=== PATIENT | female | born 1975 | race Two or more races ===

== ENCOUNTER 2017-09-07 21:51 | Emergency (ER) | payer BC ==
[2017-09-07] MEDS ORDERED: Morphine 2 MG/ML Syringe IM ONE (22:12)
--- NOTE | 2017-09-07 22:12 | EDM.PDOC ---
ED HPI GENERAL MEDICAL PROBLEM - General Chief Complaint: Lower Extremity Injury/Pain Stated Complaint: FRACTURED TOE Time Seen by Provider: 09/07/17 22:12 Source of Information: Reports: Patient - History of Present Illness INITIAL COMMENTS - FREE TEXT/NARRATIVE: HISTORY AND PHYSICAL: History of present illness: [Patient presents with history of total fracture on the left foot she is under the care of our smash piecer [place] She is receiving multiple steroid injections and she has a walking shoe, she has been doing well as of late although today she went shopping with her in order on her feet for a couple of hours she presents with 8 out of 10 pain is tearful did provide morphine on arrival she has recent MRI however does not been red and was unable to open it No fever nausea vomiting chills sweats] Review of systems: As per history of present illness and below otherwise all systems reviewed and negative. Past medical history: As per history of present illness and as reviewed below otherwise noncontributory. Surgical history: As per history of present illness and as reviewed below otherwise noncontributory. Social history: No reported history of drug or alcohol abuse. Family history: As per history of present illness and as reviewed below otherwise noncontributory. Physical exam: HEENT: Atraumatic, normocephalic, pupils reactive, negative for conjunctival pallor or scleral icterus, mucous membranes moist, throat clear, neck supple, nontender, trachea midline. Lungs: Clear to auscultation, breath sounds equal bilaterally, chest nontender. Heart: S1S2, regular, negative for clicks, rubs, or JVD. Abdomen: Soft, nondistended, nontender. Negative for masses or hepatosplenomegaly. Negative for costovertebral tenderness. Pelvis: Stable nontender. Genitourinary: Deferred. Rectal: Deferred. Extremities: Atraumatic, negative for cords or calf pain. Neurovascular unremarkable. Left foot grossly unremarkable neurovascularly intact no redness warmth or bruising no swelling Neuro: Awake, alert, oriented. Cranial nerves II through XII unremarkable. Cerebellum unremarkable. Motor and sensory unremarkable throughout. Exam nonfocal. Diagnostics: [MRI on file not read by radiology Multiple previous x-rays] Therapeutics: [[place] 5 per 325 ] Impression: [Left foot pain] Definitive disposition and diagnosis as appropriate pending reevaluation and review of above. Left Feet Pain Score (Numeric/FACES): 10 - Related Data Allergies Allergy/AdvReac Type Severity Reaction Status Date / Time No Known Allergies Allergy Verified 09/07/17 22:02 Home Meds: Home Meds . [No Known Home Meds] 03/01/16 [History] Past Medical History - Past Health History Medical/Surgical History: Denies Medical/Surgical History - Infectious Disease History Infectious Disease History: Reports: Chicken Pox Social & Family History - Family History Family Medical History: Noncontributory - Tobacco Use Smoking Status *Q: Never Smoker - Caffeine Use Caffeine Use: Reports: None - Recreational Drug Use Recreational Drug Use: No Review of Systems - Review of Systems Review Of Systems: See Below ED EXAM, GENERAL - Physical Exam Exam: See Below Course - Vital Signs Last Recorded V/S: Last Vital Signs Temp 97.7 F 09/07/17 22:03 Pulse 128 H 09/07/17 22:03 Resp 24 H 09/07/17 22:03 BP 152/102 H 09/07/17 22:03 Pulse Ox 98 09/07/17 22:03 - Orders/Labs/Meds Meds: Medications Discontinued Medications Generic Name Dose Route Start Last Admin Trade Name Freq PRN Reason Stop Dose Admin Morphine Sulfate 2 mg 09/07/17 22:12 09/07/17 22:20 Morphine IM 09/07/17 22:13 2 mg ONETIME ONE Administration Departure - Departure Time of Disposition: 22:34 Disposition: Home, Self-Care 01 Condition: Good Clinical Impression: Foot pain, left - Discharge Information Referrals: PCP,None [Primary Care Provider] - Forms: ED Department Discharge Additional Instructions: Medication as prescribed Return if symptoms persist or worsen Follow-up with smash piecer [place] providedIn the interim Rest ice ibuprofen may also be used The following information is given to patients seen in the emergency department who are being discharged to home. This information is to outline your options for follow-up care. We provide all patients seen in our emergency department with a follow-up referral. The need for follow-up, as well as the timing and circumstances, are variable depending upon the specifics of your emergency department visit. If you don't have a primary care physician on staff, we will provide you with a referral. We always advise you to contact your personal physician following an emergency department visit to inform them of the circumstance of the visit and for follow-up with them and/or the need for any referrals to a consulting specialist. The emergency department will also refer you to a specialist when appropriate. This referral assures that you have the opportunity for follow-up care with a specialist. All of these measure are taken in an effort to provide you with optimal care, which includes your follow-up. Under all circumstances we always encourage you to contact your private physician who remains a resource for coordinating your care. When calling for follow-up care, please make the office aware that this follow-up is from your recent emergency room visit. If for any reason you are refused follow-up, please contact the [facility] emergency department at and asked to speak to the emergency department charge nurse.
[2017-09-07 23:08] VITALS: BP 129/78
== END 2017-09-07 22:45 | disposition home or self-care (01) ==
LOC: MW.ED 21:51
DX: M25.572 Pain in left ankle and joints of left foot (principal)
CPT/HCPCS: 96372; 99283; J2270; 99282

== ENCOUNTER 2018-09-10 10:09 | Emergency (ER) | payer BC ==
[2018-09-10] MEDS ORDERED: Ondansetron 4 MG/2 ML SDV IVPUSH ONE (10:13)
[2018-09-10] MEDS ORDERED: Ketorolac 30 MG/ML SDV IVPUSH ONE (10:13)
[2018-09-10] MEDS ORDERED: Sodium Chloride 0.9% 1,000 ML IV ONE (10:13)
[2018-09-10] MEDS ORDERED: Morphine 2 MG/ML Syringe IVPUSH ONE (10:14)
--- NOTE | 2018-09-10 10:18 | EDM.PDOC ---
ED HPI GENERAL MEDICAL PROBLEM - General Chief Complaint: Genitourinary Problem Stated Complaint: KIDNEY STONES Time Seen by Provider: 09/10/18 10:13 Source of Information: Reports: Patient History Limitations: Reports: No Limitations - History of Present Illness INITIAL COMMENTS - FREE TEXT/NARRATIVE: HISTORY AND PHYSICAL: History of present illness: Patient is a 43-year-old female presents to the ED today with concern of left flank pain since this morning. Patient states she has a history of kidney stones in the past and her pain today feels similar to her past kidney stones. Patient rates her pain a 10 out of 10. Patient states she also feels nauseous so she has not been able to take anything for her symptoms. Patient denies a history of anxiety and depression but denies any other health history. Patient denies any other symptoms at this time. Patient denies any injury or trauma to the area. Patient denies fever, chills, chest pain, shortness of breath, or cough. Denies headache, neck stiff ness, change in vision, syncope, or near syncope. Denies vomiting, diarrhea, constipation, or dysuria. Has not noted any blood in urine or stool. Patient has been eating and drinking appropriately. Review of systems: As per history of present illness and below otherwise all systems reviewed and negative. Past medical history: As per history of present illness and as reviewed below otherwise noncontributory. Surgical history: As per history of present illness and as reviewed below otherwise noncontributory. Social history: See social history for further information Family history: As per history of present illness and as reviewed below otherwise noncontributory. Physical exam: General: Patient is alert, oriented, and in no acute distress. Patient sitting on exam table tearful and holding left flank area. HEENT: Atraumatic, normocephalic, pupils equal and reactive bilaterally, negative for conjunctival pallor or scleral icterus, mucous membranes moist, TMs normal bilaterally, throat clear, neck supple, nontender, trachea midline. No drooling or trismus noted. No meningeal signs. No hot potato voice noted. Lungs: Clear to auscultation, breath sounds equal bilaterally, chest nontender. Heart: S1S2, regular rate and rhythm without overt murmur Abdomen: Soft, nondistended, nontender. Negative for masses or hepatosplenomegaly. Positive for costovertebral tenderness of the left. Pelvis: Stable nontender. Genitourinary: Deferred. Rectal: Deferred. Skin: Intact, warm, dry. No lesions or rashes noted. Extremities: Atraumatic, negative for cords or calf pain. Neurovascular unremarkable. Neuro: Awake, alert, oriented. Cranial nerves II through XII unremarkable. Cerebellum unremarkable. Motor and sensory unremarkable throughout. Exam nonfocal. Notes: Patient's pain controlled after therapeutics in ED. Patient able to tolerate PO intake. Did offer admission for observation but patient declines and expresses comfort with outpatient treatment. Discussed the importance for follow-up with the primary care provider. Also discussed the findings of small nodules in her lung bases and need for follow up of these with PCP. Voices understanding and is agreeable to plan of care. Denies any further questions or concerns at this time. Diagnostics: CBC, CMP, UA, urine hCG, lipase, EKG, troponin, abdominal pelvic CT Therapeutics: Toradol, morphine, Zofran, Saline, Rocephin Prescription: Bactrim DS, Pyridium, Hope #[id number], Zofran Impression: Acute pyelonephritis / cystitis Plan: 1. Alternate ibuprofen and Tylenol as directed for pain and discomfort. 2. Follow-up with her primary care provider as discussed. Return to the ED as needed and as discussed. Definitive disposition and diagnosis as appropriate pending reevaluation and review of above. left flank Pain Score (Numeric/FACES): 10 - Related Data Allergies Allergy/AdvReac Type Severity Reaction Status Date / Time No Known Allergies Allergy Verified 09/10/18 10:21 Home Meds: Home Meds . [No Known Home Meds] 03/01/16 [History] Past Medical History - Past Health History Medical/Surgical History: Denies Medical/Surgical History - Infectious Disease History Infectious Disease History: Reports: Chicken Pox Social & Family History - Family History Family Medical History: Noncontributory - Caffeine Use Caffeine Use: Reports: None ED ROS GENERAL - Review of Systems Review Of Systems: ROS reveals no pertinent complaints other than HPI. ED EXAM, RENAL/ - Physical Exam Exam: See Below (See dictation) Course - Vital Signs Last Recorded V/S: Last Vital Signs Temp 36.4 C 09/10/18 10:22 Pulse 74 09/10/18 11:15 Resp 16 09/10/18 11:15 BP 121/70 09/10/18 11:15 Pulse Ox 97 09/10/18 11:15 - Orders/Labs/Meds Orders: Active Orders 24 hr Category Date Time Status EKG Documentation Completion [RC] STAT Care 09/10/18 10:15 Active CULTURE URINE [RM] Stat Lab 09/10/18 10:27 Received cefTRIAXone [Rocephin in Dextrose,Iso-Osm 1 GM/50 ML] 1 Med 09/10/18 11:30 Ordered gm Premix Bag 1 bag IV ONETIME Medication Orders Ceftriaxone Sodium/Dextrose 1 (gm/ Premix) 50 mls @ 100 mls/hr IV ONETIME ONE Stop: 09/10/18 11:59 Labs: Laboratory Tests 09/10/18 09/10/18 09/10/18 Range/Units 10:26 10:26 10:26 WBC 8.96 (4.0-11.0) K/uL RBC 5.05 (4.30-5.90) M/uL Hgb 14.6 (12.0-16.0) g/dL Hct 44.3 (36.0-46.0) % MCV 87.7 (80.0-98.0) fL MCH 28.9 (27.0-32.0) pg MCHC 33.0 (31.0-37.0) g/dL RDW Std Deviation 44.9 (28.0-62.0) fl RDW Coeff of [place] 14 (11.0-15.0) % Plt Count 283 (150-400) K/uL MPV 11.90 (7.40-12.00) fL Neut % (Auto) 64.1 (48.0-80.0) % Lymph % (Auto) 28.0 (16.0-40.0) % [place] % (Auto) 6.0 (0.0-15.0) % Eos % (Auto) 1.8 (0.0-7.0) % Baso % (Auto) 0.1 (0.0-1.5) % Neut # (Auto) 5.7 (1.4-5.7) K/uL Lymph # (Auto) 2.5 H (0.6-2.4) K/uL [place] # (Auto) 0.5 (0.0-0.8) K/uL Eos # (Auto) 0.2 (0.0-0.7) K/uL Baso # (Auto) 0.0 (0.0-0.1) K/uL Nucleated RBC % 0.0 /100WBC Nucleated RBCs # 0 K/uL Sodium 139 (136-145) mmol/L Potassium 3.5 (3.5-5.1) mmol/L Chloride 105 (98-107) mmol/L Carbon Dioxide 20.7 L (21.0-32.0) mmol/L BUN 11 (7.0-18.0) mg/dL Creatinine 0.9 (0.6-1.0) mg/dL Est Cr Clr Drug Dosing 68.88 mL/min Estimated GFR (MDRD) > 60.0 ml/min Glucose 104 (74-106) mg/dL Calcium 8.7 (8.5-10.1) mg/dL Total Bilirubin 1.1 H (0.2-1.0) mg/dL AST 19 (15-37) IU/L ALT 25 (14-63) IU/L Alkaline Phosphatase 170 H (46-116) U/L Troponin I < 0.050 (0.000-0.056) ng/mL Total Protein 8.0 (6.4-8.2) g/dL Albumin 3.7 (3.4-5.0) g/dL Globulin 4.3 H (2.6-4.0) g/dL Albumin/Globulin Ratio 0.9 (0.9-1.6) Lipase 128 (73-393) U/L Urine Color Urine Appearance Urine pH (5.0-8.0) Ur Specific [place] (1.001-1.035) Urine Protein (NEGATIVE) mg/dL Urine Glucose (UA) (NEGATIVE) mg/dL Urine Ketones (NEGATIVE) mg/dL Urine Occult Blood (NEGATIVE) Urine Nitrite (NEGATIVE) Urine Bilirubin (NEGATIVE) Urine Urobilinogen (<2.0) EU/dL Ur Leukocyte Esterase (NEGATIVE) Urine RBC (0-2/HPF) Urine WBC (0-5/HPF) Ur Epithelial Cells (NONE-FEW) Amorphous Sediment (NEGATIVE) Urine Bacteria (NEGATIVE) Urine Mucus (NONE-MOD) Urine HCG, Qual (NEGATIVE) 09/10/18 09/10/18 Range/Units 10:27 10:27 WBC (4.0-11.0) K/uL RBC (4.30-5.90) M/uL Hgb (12.0-16.0) g/dL Hct (36.0-46.0) % MCV (80.0-98.0) fL MCH (27.0-32.0) pg MCHC (31.0-37.0) g/dL RDW Std Deviation (28.0-62.0) fl RDW Coeff of [place] (11.0-15.0) % Plt Count (150-400) K/uL MPV (7.40-12.00) fL Neut % (Auto) (48.0-80.0) % Lymph % (Auto) (16.0-40.0) % [place] % (Auto) (0.0-15.0) % Eos % (Auto) (0.0-7.0) % Baso % (Auto) (0.0-1.5) % Neut # (Auto) (1.4-5.7) K/uL Lymph # (Auto) (0.6-2.4) K/uL [place] # (Auto) (0.0-0.8) K/uL Eos # (Auto) (0.0-0.7) K/uL Baso # (Auto) (0.0-0.1) K/uL Nucleated RBC % /100WBC Nucleated RBCs # K/uL Sodium (136-145) mmol/L Potassium (3.5-5.1) mmol/L Chloride (98-107) mmol/L Carbon Dioxide (21.0-32.0) mmol/L BUN (7.0-18.0) mg/dL Creatinine (0.6-1.0) mg/dL Est Cr Clr Drug Dosing mL/min Estimated GFR (MDRD) ml/min Glucose (74-106) mg/dL Calcium (8.5-10.1) mg/dL Total Bilirubin (0.2-1.0) mg/dL AST (15-37) IU/L ALT (14-63) IU/L Alkaline Phosphatase (46-116) U/L Troponin I (0.000-0.056) ng/mL Total Protein (6.4-8.2) g/dL Albumin (3.4-5.0) g/dL Globulin (2.6-4.0) g/dL Albumin/Globulin Ratio (0.9-1.6) Lipase (73-393) U/L Urine Color YELLOW Urine Appearance SLT CLOUDY Urine pH 8.0 (5.0-8.0) Ur Specific [place] 1.015 (1.001-1.035) Urine Protein NEGATIVE (NEGATIVE) mg/dL Urine Glucose (UA) NEGATIVE (NEGATIVE) mg/dL Urine Ketones NEGATIVE (NEGATIVE) mg/dL Urine Occult Blood NEGATIVE (NEGATIVE) Urine Nitrite NEGATIVE (NEGATIVE) Urine Bilirubin NEGATIVE (NEGATIVE) Urine Urobilinogen 0.2 (<2.0) EU/dL Ur Leukocyte Esterase SMALL H (NEGATIVE) Urine RBC 1-2 (0-2/HPF) Urine WBC 8-12 (0-5/HPF) Ur Epithelial Cells FEW (NONE-FEW) Amorphous Sediment FEW (NEGATIVE) Urine Bacteria 1+ H (NEGATIVE) Urine Mucus FEW (NONE-MOD) Urine HCG, Qual NEGATIVE (NEGATIVE) Meds: Medications Generic Name Dose Route Start Last Admin Trade Name April PRN Reason Stop Dose Admin Ceftriaxone Sodium/Dextrose 1 50 mls @ 100 mls/hr 09/10/18 11:30 gm/ Premix IV 09/10/18 11:59 ONETIME ONE Discontinued Medications Generic Name Dose Route Start Last Admin Trade Name April PRN Reason Stop Dose Admin Sodium Chloride 1,000 mls @ 999 mls/hr 09/10/18 10:13 09/10/18 10:21 Normal Saline IV 09/10/18 11:13 999 mls/hr BOLUS ONE Administration Ketorolac Tromethamine 30 mg 09/10/18 10:13 09/10/18 10:22 Toradol IVPUSH 09/10/18 10:14 30 mg ONETIME ONE Administration Morphine Sulfate 2 mg 09/10/18 10:14 09/10/18 10:21 Morphine IVPUSH 09/10/18 10:15 2 mg ONETIME ONE Administration Ondansetron HCl 4 mg 09/10/18 10:13 09/10/18 10:22 Zofran IVPUSH 09/10/18 10:14 4 mg ONETIME ONE Administration Departure - Departure Time of Disposition: 11:36 Disposition: Home, Self-Care 01 Clinical Impression: Acute pyelonephritis - Discharge Information Instructions: Pyelonephritis, Adult Referrals: Carolina Talamantes NP [Primary Care Provider] - Forms: ED Department Discharge Additional Instructions: The following information is given to patients seen in the emergency department who are being discharged to home. This information is to outline your options for follow-up care. We provide all patients seen in our emergency department with a follow-up referral. The need for follow-up, as well as the timing and circumstances, are variable depending upon the specifics of your emergency department visit. If you don't have a primary care physician on staff, we will provide you with a referral. We always advise you to contact your personal physician following an emergency department visit to inform them of the circumstance of the visit and for follow-up with them and/or the need for any referrals to a consulting specialist. The emergency department will also refer you to a specialist when appropriate. This referral assures that you have the opportunity for follow-up care with a specialist. All of these measure are taken in an effort to provide you with optimal care, which includes your follow-up. Under all circumstances we always encourage you to contact your private physician who remains a resource for coordinating your care. When calling for follow-up care, please make the office aware that this follow-up is from your recent emergency room visit. If for any reason you are refused follow-up, please contact the [facility] Emergency Department at and asked to speak to the emergency department charge nurse. [facility] [address] [place], [place] [id number] [place] [address] 1. Alternate ibuprofen and Tylenol as directed for pain and discomfort. Take medication as prescribed. 2. Follow-up with her primary care provider as discussed. Return to the ED as needed and as discussed. - My Orders Last 24 Hours: My Active Orders 09/10/18 10:15 EKG Documentation Completion [RC] STAT 09/10/18 10:27 CULTURE URINE [RM] Stat 09/10/18 11:30 cefTRIAXone [Rocephin in Dextrose,Iso-Osm 1 GM/50 ML] 1 gm Premix Bag 1 bag IV ONETIME - Assessment/Plan Last 24 Hours: My Active Orders 09/10/18 10:15 EKG Documentation Completion [RC] STAT 09/10/18 10:27 CULTURE URINE [RM] Stat 09/10/18 11:30 cefTRIAXone [Rocephin in Dextrose,Iso-Osm 1 GM/50 ML] 1 gm Premix Bag 1 bag IV ONETIME
[2018-09-10 10:56] LABS: CHLORIDE,CL 105 mmol/L (98-107); SODIUM,NA 139 mmol/L (136-145)
--- NOTE | 2018-09-10 11:19 | CT ---
CT of the abdomen and pelvis without contrast. HISTORY: Flank pain TECHNIQUE: Axial CT images were obtained of the abdomen and pelvis without contrast. Coronal and sagittal reconstructions obtained. FINDINGS: The lung bases are clear, no pleural effusion. There are several tiny pleural and subpleural nodules within the lung bases bilaterally. Small hiatal hernia. The liver, spleen, adrenal glands, and pancreas appear unremarkable for noncontrast examination. The gallbladder appears normal. There is no bulky retroperitoneal lymphadenopathy. No abdominal ascites. Tiny fat-containing umbilical hernia. There are no calcifications noted within the kidneys or along the courses of the ureters bilaterally. The large and small bowel are normal in caliber without evidence of obstruction. The appendix appears normal. There is no bulky pelvic lymphadenopathy. No free fluid. No free air. The urinary bladder appears normal. The visualized osseous structures appear normal. IMPRESSION: 1. No acute findings within the abdomen or pelvis. 2. Several very tiny nodules within the lung bases, the patient has known risk factors consider follow-up imaging in 12 months.
[2018-09-10] MEDS ORDERED: cefTRIAXone 1 GM in Premix Bag 1 BAG IV ONE (11:30)
[2018-09-10 12:08] VITALS: BP 139/74
== END 2018-09-10 12:15 | disposition home or self-care (01) ==
LOC: MW.ED 10:09
DX: N10 Acute pyelonephritis (principal)
CPT/HCPCS: 36415; 74176; 80053; 81001; 81025; 83690; 84484; 85025; 87086; 93005; 96361; 96365; 96375; 99284; A4217; J0696; J1885; J2270; J2405; J7040

== ENCOUNTER 2018-11-07 11:14 | Emergency (ER) | payer BC ==
[2018-11-07] MEDS ORDERED: Ketorolac 60 MG/2 ML SDV IM ONE (11:50)
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
--- NOTE | 2018-11-07 12:22 | CR ---
Indication: Trauma Technique: Two views of the right shoulder Comparison: None available Findings: Bones: Alignment is normal. No fractures or bone lesions. Joint spaces: Unremarkable. Soft tissues: Unremarkable. Impression: Negative. Dictated by Matthias Riggs MD @ 11/07/2018 12:20:30 PM Dictated by: Matthias Riggs MD @ 11/07/2018 12:20:34 (Electronically Signed)
[2018-11-07] MEDS ORDERED: LORazepam 0.5 MG Tab PO ONE (12:24)
--- NOTE | 2018-11-07 12:26 | CR ---
INDICATION: Trauma TECHNIQUE: Chest and right ribs five views COMPARISON: None available FINDINGS: Cardiovascular and mediastinum: Heart size and vasculature are normal in caliber and appearance. Mediastinum is within normal limits. Lungs and pleural spaces: Lungs are clear. No sign of infiltrate or mass. No sign of pleural effusion. No pneumothorax. Bones and soft tissues: Detailed oblique images of the right ribs demonstrate no fractures or bone lesions. IMPRESSION: Unremarkable chest and right ribs. Dictated by Matthias Riggs MD @ 11/07/2018 12:24:27 PM Dictated by: Matthias Riggs MD @ 11/07/2018 12:24:48 (Electronically Signed)
--- NOTE | 2018-11-07 12:28 | CR ---
Indication: Trauma Technique: A single view of the pelvis Comparison: None available Findings: Bones: An apparent small curvilinear lucency in the mid sacrum which could be projectional. Otherwise, no acute displaced fracture or dislocation seen. Joint spaces: Unremarkable. Soft tissues: Unremarkable. Impression: An apparent small sacral lucency could be artifactual, however correlate clinically and if indicated, with additional views. Dictated by Matthias Riggs MD @ 11/07/2018 12:27:16 PM Dictated by: Matthias Riggs MD @ 11/07/2018 12:27:25 (Electronically Signed)
[2018-11-07 13:24] LABS: BLOOD UREA NITROGEN,BUN 10 mg/dL (7.0-18.0); CHLORIDE,CL 107 mmol/L (98-107); GLUCOSE RANDOM 96 mg/dL (74-106); POTASSIUM,K 3.9 mmol/L (3.5-5.1); SODIUM,NA 142 mmol/L (136-145)
[2018-11-07 16:51] VITALS: BP 122/66; PULSE 75
== END 2018-11-07 14:00 | disposition home or self-care (01) ==
LOC: MW.ED 11:14
DX: S20.211A Contusion of right front wall of thorax, initial encounter (principal); S40.011A Contusion of right shoulder, initial encounter; V86.55XA Driver of 3- or 4- wheeled all-terrain vehicle (ATV) injured in nontraffic accident, initial encounter
CPT/HCPCS: 36415; 71101; 72170; 73030; 80053; 81003; 81025; 85025; 96372; 99284; A9270; J1885

== ENCOUNTER 2020-07-30 21:10 | Emergency (ER) | payer BC ==
--- NOTE | 2020-07-30 22:25 | EDM.PDOC ---
<Eloy Obrien - Last Filed: 07/31/20 07:08> ED HPI GENERAL MEDICAL PROBLEM - General Chief Complaint: General Stated Complaint: MEDICAL CLEARANCE Time Seen by Provider: 07/30/20 21:40 - History of Present Illness INITIAL COMMENTS - FREE TEXT/NARRATIVE: HISTORY AND PHYSICAL: History of present illness: This is a 44-year-old female with history significant for PTSD, depression, anxiety, schizophrenia, prior episodes of suicide attempts with prior admission to a psychiatric facility (last admission approximately 1 month ago in [place]) who presents to the ER today by police secondary to being called initially for a domestic violence call. Please report when they arrived there were no issues with domestic violence that they could address however the patient verbalized to them that she was tired of living and that she want to go to her heavenly father and had intentions of killing her self with a knife. She was transferred to the ED for further psychiatric evaluation by police at that time. Upon my evaluation the patient, she reports that she recently came back from [place] and found out that her was cheating on her which caused an argument with her . She reports that she do not get assaulted. She denies any trauma from her . She reports that that was a trigger that caused her to become suicidal. Patient denies any recent fevers, shakes, chills, nausea, vomiting, diarrhea, dysuria, frequency, urgency, chest pain, shortness of breath. Patient reports that she has not taken any of her mental health medications for the last 2 days secondary to feeling depressed, worthless and just wanting everything to end. Patient does endorse auditory hallucinations with voices arguing whether or not she should kill herself. Patient denies any visual hallucinations. Patient denies any homicidal ideation. Patient does endorse suicidal ideation at this time. Patient denies any actual attempt as of yet to harm her self today. Review of systems: As per history of present illness and below otherwise all systems reviewed and negative. Past medical history: As per history of present illness and as reviewed below otherwise noncontributory. Surgical history: As per history of present illness and as reviewed below otherwise noncontributory. Social history: No reported history of drug or alcohol abuse. Family history: As per history of present illness and as reviewed below otherwise noncontributory. Physical exam: This patient was seen and evaluated during the 2019 SARS-CoV-2 novel coronavirus pandemic period. Community viral transmission is ongoing at time of this encounter and the emergency department is operating under pandemic response procedures. Constitutional: Patient is oriented to person, place, and time. Appears well-developed and well-nourished. No distress. HEENT: Moist mucous membranes Head: Normocephalic and atraumatic Eyes: Right eye exhibits no discharge. Left eye exhibits no discharge. No scleral icterus Neck: Normal range of motion. No tracheal deviation present. Cardiovascular: Normal rate and regular rhythm. Pulmonary: Effort normal, no respiratory distress. Abdominal: No distention Musculoskeletal: Normal range of motion Neurologic: Alert and oriented to person, place and time. Skin: Pender, warm and dry. Psychiatric: Normal mood and affect. Behavior is normal. Judgment and thought content normal. Nursing note and vital signs have been reviewed Upon my initial evaluation the patient reported that she was feeling much improved and that she was not suicidal at this time. However patient had 2 episodes where she was noted to be rolling up the sheets in order to hang in the ceiling of the room so that she can hang herself. Diagnostics: CBC, CMP, EKG, urine drug screen, alcohol level. EKG: As interpreted by ER physician: Micah: Nonspecific ST-T wave abnormalities Normal axis No evidence of ST elevation HI Normal sinus rhythm heart rate of 88. Therapeutics: [] Assessment and plan: This is a 44-year-old female who presents to the ER today by law enforcement for further evaluation of suicidal ideation. While in the ED the patient did have 2 episodes where she was rolling up sheets in order to hang herself. Although patient initially reported that she was feeling much better, at this time she reports that she is actively suicidal and wanting to end her life. Patient will have labs drawn in the ED to make sure she is medically stable that we can transfer her to an appropriate psychiatric facility for inpatient evaluation. 1 AM: Patient has been medically cleared for mental health evaluation. Patient's labs have all been within normal limits. Patient has been calm and cooperative throughout the remainder of her ER stay. 1:05 AM: [facility] hospital contacted: No mental health beds available at this time. 1:10 AM: [facility] contacted: No mental health beds available at this time. 1:15 AM: [facility] contacted: They do have availability for female mental health adult bed available. I have discussed the case with Dr. White. She has accepted patient for transfer but is only able to hold her bed for 6 hours. Bed will be released at 7:15 AM if patient is not there. 1:30 AM: A court hold has been initiated by me for the patient. All forms have been faxed to the appropriate numbers that were given. [phone]: Fax for the psychiatry floor for review of court hold papers. 2 AM: At this time, we have attempted to contact 11 different ambulance crews to assist us with transferring this patient in the designated timeframe. Unfortunately, we do not have an ambulance crew here [place] that would be available before 8 AM. Multiple other ambulance crews have been contacted and none of which are able to assist us with transferring the patient before 7 AM either. I have recontacted [facility] at 1:50 AM and I have informed them of the situation. At this time will release the bed to allow oth ers who might need the bed to utilize it for transfer. We will contact them back at 6:30 AM to see if they can still accept the patient for transfer when we have transfer capabilities available. 6:30am: contacted [facility] to inquire regarding bed availability for patient. Discussed with Dr. White there was agreed to accept patient once again but has asked that we maintain a 6-hour timeframe for bed placement. All forms have been sent and awaiting approval from the psychiatry charge nurse at this time. Definitive disposition and diagnosis as appropriate pending reevaluation and review of above. - Related Data Allergies Allergy/AdvReac Type Severity Reaction Status Date / Time No Known Allergies Allergy Verified 11/07/18 11:38 Home Meds: Home Meds Albuterol Sulfate [Proair Hfa] 8.5 gm IH PCBREAKFAST 07/30/20 [History] Docusate Sodium [Colace] 100 mg PO 07/30/20 [History] FLUoxetine HCl [Fluoxetine HCl] 20 mg PO 07/30/20 [History] Fluticasone Propionate [Flovent HFA] 44 mcg .XX 07/30/20 [History] Ondansetron [Zofran ODT] 4 mg PO Q6H PRN 07/30/20 [History] Prazosin HCl [Prazosin] 2 mg PO 07/30/20 [History] Prazosin [Minpress] 1 mg PO 07/30/20 [History] hydrOXYzine HCL [Hydroxyzine HCl] 25 mg PO 07/30/20 [History] risperiDONE [Risperidone] 2 mg PO 07/30/20 [History] Past Medical History - Past Health History Medical/Surgical History: Denies Medical/Surgical History HEENT History: Reports: None Cardiovascular History: Reports: None Respiratory History: Reports: Asthma Gastrointestinal History: Reports: None Genitourinary History: Reports: Renal Calculus CLIENT ACCOUNT MANAGER History: Reports: None Musculoskeletal History: Reports: None Neurological History: Reports: None Psychiatric History: Reports: None Endocrine/Metabolic History: Reports: None Hematologic History: Reports: None Immunologic History: Reports: None Oncologic (Cancer) History: Reports: None Dermatologic History: Reports: None - Infectious Disease History Infectious Disease History: Reports: Chicken Pox - Past Surgical History Head Surgeries/Procedures: Reports: None HEENT Surgical History: Reports: None Cardiovascular Surgical History: Reports: None Respiratory Surgical History: Reports: None GI Surgical History: Reports: None Female Surgical History: Reports: Ureteral Stent Endocrine Surgical History: Reports: None Neurological Surgical History: Reports: None Musculoskeletal Surgical History: Reports: Other (See Below) Other Musculoskeletal Surgeries/Procedures:: foot surgery Oncologic Surgical History: Reports: None Dermatological Surgical History: Reports: None Social & Family History - Family History Family Medical History: No Pertinent Family History - Caffeine Use Caffeine Use: Reports: None ED ROS GENERAL - Review of Systems Review Of Systems: See Below ED EXAM, GENERAL - Physical Exam Exam: See Below Departure - Departure Time of Disposition: 07:08 Disposition: DC/Tfer to Psych Hosp/Unit 65 Condition: Good Clinical Impression: Suicidal ideation - Discharge Information Referrals: Oscar Ferrara MD [Ordering Only Provider] - Forms: ED Department Discharge <Eddy Silva - Last Filed: 07/31/20 07:17> Course - Vital Signs Last Recorded V/S: Last Vital Signs Temp 97.8 F 07/31/20 05:07 Pulse 84 07/31/20 06:08 Resp 16 07/31/20 06:08 BP 100/48 L 07/31/20 06:08 Pulse Ox 95 07/31/20 06:08 - Orders/Labs/Meds Orders: Active Orders 24 hr Category Date Time Status EKG Documentation Completion [RC] STAT Care 04/30/21 21:46 Active Labs: Laboratory Tests 07/30/20 07/30/20 07/30/20 Range/Units 22:10 22:15 22:15 WBC (4.0-11.0) K/uL RBC (4.30-5.90) M/uL Hgb (12.0-16.0) g/dL Hct (36.0-46.0) % MCV (80.0-98.0) fL MCH (27.0-32.0) pg MCHC (31.0-37.0) g/dL RDW Std Deviation (28.0-62.0) fl RDW Coeff of Collins (11.0-15.0) % Plt Count (150-400) K/uL MPV (7.40-12.00) fL Neut % (Auto) (48.0-80.0) % Lymph % (Auto) (16.0-40.0) % [place] % (Auto) (0.0-15.0) % Eos % (Auto) (0.0-7.0) % Baso % (Auto) (0.0-1.5) % Neut # (Auto) (1.4-5.7) K/uL Lymph # (Auto) (0.6-2.4) K/uL [place] # (Auto) (0.0-0.8) K/uL Eos # (Auto) (0.0-0.7) K/uL Baso # (Auto) (0.0-0.1) K/uL Nucleated RBC % /100WBC Nucleated RBCs # K/uL Sodium (136-145) mmol/L Potassium (3.5-5.1) mmol/L Chloride (98-107) mmol/L Carbon Dioxide (21.0-32.0) mmol/L BUN (7.0-18.0) mg/dL Creatinine (0.6-1.0) mg/dL Est Cr Clr Drug Dosing mL/min Estimated GFR (MDRD) ml/min Glucose (74-106) mg/dL Calcium (8.5-10.1) mg/dL Magnesium (1.8-2.4) mg/dL Total Bilirubin (0.2-1.0) mg/dL AST (15-37) IU/L ALT (14-63) IU/L Alkaline Phosphatase (46-116) U/L Total Protein (6.4-8.2) g/dL Albumin (3.4-5.0) g/dL Globulin (2.6-4.0) g/dL Albumin/Globulin Ratio (0.9-1.6) TSH 3rd Generation (0.36-3.74) uIU/mL Urine Color YELLOW Urine Appearance CLEAR Urine pH 6.0 (5.0-8.0) Ur Specific Duff 1.015 (1.001-1.035) Urine Protein NEGATIVE (NEGATIVE) mg/dL Urine Glucose (UA) NEGATIVE (NEGATIVE) mg/dL Urine Ketones NEGATIVE (NEGATIVE) mg/dL Urine Occult Blood NEGATIVE (NEGATIVE) Urine Nitrite NEGATIVE (NEGATIVE) Urine Bilirubin NEGATIVE (NEGATIVE) Urine Urobilinogen 0.2 (<2.0) EU/dL Ur Leukocyte Esterase TRACE H (NEGATIVE) Urine RBC 0-1 (0-2/HPF) Urine WBC 1-4 (0-5/HPF) Ur Epithelial Cells MODERATE (NONE-FEW) Urine Bacteria RARE (NEGATIVE) Urine HCG, Qual NEGATIVE (NEGATIVE) Salicylates (0-20) mg/dL Urine Opiates Screen NEGATIVE (NEGATIVE) Ur Oxycodone Screen NEGATIVE (NEGATIVE) Urine Methadone Screen NEGATIVE (NEGATIVE) Acetaminophen ug/mL Ur Barbiturates Screen NEGATIVE (NEGATIVE) Ur Phencyclidine Scrn NEGATIVE (NEGATIVE) Ur Amphetamine Screen NEGATIVE (NEGATIVE) U Methamphetamines Scrn NEGATIVE (NEGATIVE) U Benzodiazepines Scrn NEGATIVE (NEGATIVE) U Cocaine Metab Screen NEGATIVE (NEGATIVE) U Marijuana (THC) Screen NEGATIVE (NEGATIVE) Ethyl Alcohol mg/dL SARS-CoV-2 RNA (GRACE) (NEGATIVE) 07/30/20 07/30/20 07/30/20 Range/Units 22:20 23:12 23:12 WBC 10.73 (4.0-11.0) K/uL RBC 5.06 (4.30-5.90) M/uL Hgb 14.7 (12.0-16.0) g/dL Hct 44.4 (36.0-46.0) % MCV 87.7 (80.0-98.0) fL MCH 29.1 (27.0-32.0) pg MCHC 33.1 (31.0-37.0) g/dL RDW Std Deviation 45.8 (28.0-62.0) fl RDW Coeff of Collins 14 (11.0-15.0) % Plt Count 269 (150-400) K/uL MPV 11.80 (7.40-12.00) fL Neut % (Auto) 71.3 (48.0-80.0) % Lymph % (Auto) 22.9 (16.0-40.0) % [place] % (Auto) 4.8 (0.0-15.0) % Eos % (Auto) 0.8 (0.0-7.0) % Baso % (Auto) 0.2 (0.0-1.5) % Neut # (Auto) 7.7 H (1.4-5.7) K/uL Lymph # (Auto) 2.5 H (0.6-2.4) K/uL [place] # (Auto) 0.5 (0.0-0.8) K/uL Eos # (Auto) 0.1 (0.0-0.7) K/uL Baso # (Auto) 0.0 (0.0-0.1) K/uL Nucleated RBC % 0.0 /100WBC Nucleated RBCs # 0 K/uL Sodium 142 (136-145) mmol/L Potassium 3.4 L (3.5-5.1) mmol/L Chloride 106 (98-107) mmol/L Carbon Dioxide 22.7 (21.0-32.0) mmol/L BUN 8 (7.0-18.0) mg/dL Creatinine 0.9 (0.6-1.0) mg/dL Est Cr Clr Drug Dosing 68.16 mL/min Estimated GFR (MDRD) > 60.0 ml/min Glucose 103 (74-106) mg/dL Calcium 8.9 (8.5-10.1) mg/dL Magnesium 2.1 (1.8-2.4) mg/dL Total Bilirubin 0.4 (0.2-1.0) mg/dL AST 22 (15-37) IU/L ALT 32 (14-63) IU/L Alkaline Phosphatase 215 H (46-116) U/L Total Protein 7.9 (6.4-8.2) g/dL Albumin 3.6 (3.4-5.0) g/dL Globulin 4.3 H (2.6-4.0) g/dL Albumin/Globulin Ratio 0.8 L (0.9-1.6) TSH 3rd Generation 2.57 (0.36-3.74) uIU/mL Urine Color Urine Appearance Urine pH (5.0-8.0) Ur Specific Duff (1.001-1.035) Urine Protein (NEGATIVE) mg/dL Urine Glucose (UA) (NEGATIVE) mg/dL Urine Ketones (NEGATIVE) mg/dL Urine Occult Blood (NEGATIVE) Urine Nitrite (NEGATIVE) Urine Bilirubin (NEGATIVE) Urine Urobilinogen (<2.0) EU/dL Ur Leukocyte Esterase (NEGATIVE) Urine RBC (0-2/HPF) Urine WBC (0-5/HPF) Ur Epithelial Cells (NONE-FEW) Urine Bacteria (NEGATIVE) Urine HCG, Qual (NEGATIVE) Salicylates 1.4 (0-20) mg/dL Urine Opiates Screen (NEGATIVE) Ur Oxycodone Screen (NEGATIVE) Urine Methadone Screen (NEGATIVE) Acetaminophen <2.0 ug/mL Ur Barbiturates Screen (NEGATIVE) Ur Phencyclidine Scrn (NEGATIVE) Ur Amphetamine Screen (NEGATIVE) U Methamphetamines Scrn (NEGATIVE) U Benzodiazepines Scrn (NEGATIVE) U Cocaine Metab Screen (NEGATIVE) U Marijuana (THC) Screen (NEGATIVE) Ethyl Alcohol 4 mg/dL SARS-CoV-2 RNA (GRACE) NEGATIVE (NEGATIVE) Meds: Medications Discontinued Medications Generic Name Dose Route Start Last Admin Trade Name Freq PRN Reason Stop Dose Admin Acetaminophen 650 mg 07/31/20 02:05 07/31/20 02:21 Acetaminophen 325 Mg Tab PO 07/31/20 02:06 650 mg NOW ONE Administration Ondansetron HCl 4 mg 07/31/20 02:17 07/31/20 02:22 Ondansetron 4 Mg Tab.Dis PO 07/31/20 02:18 4 mg ONETIME ONE Administration Departure - Departure Condition: Good Sepsis Event Note (ED) - Focused Exam Vital Signs: Vital Signs Temp Pulse Resp BP Pulse Ox 07/31/20 06:08 84 16 100/48 L 95 07/31/20 05:07 97.8 F 88 15 107/56 L 95 07/31/20 04:05 97.8 F 80 16 119/79 96 07/31/20 03:01 97.7 F 84 16 115/74 96 07/31/20 01:51 97.6 F 76 16 127/76 97 07/31/20 00:51 98.1 F 68 16 120/67 97 07/30/20 23:53 97.7 F 76 16 130/94 H 97 07/30/20 22:53 98.2 F 82 15 127/99 H 98 07/30/20 22:34 98.3 F 88 18 151/92 H 96 - Assessment/Plan Assessment:: Pt received in signout from Dr. Obrien. Pt con't to rest comfortably in the room. Pt has been accepted for transfer to [facility] for psychiatric admission.
[2020-07-30 23:44] LABS: ACETAMINOPHEN <2.0 ug/mL; BLOOD UREA NITROGEN,BUN 8 mg/dL (7.0-18.0); CARBON DIOXIDE,CO2 22.7 mmol/L (21.0-32.0); CHLORIDE,CL 106 mmol/L (98-107); GLUCOSE RANDOM 103 mg/dL (74-106); POTASSIUM,K 3.4 mmol/L (3.5-5.1); SODIUM,NA 142 mmol/L (136-145)
[2020-07-31] MEDS ORDERED: Acetaminophen 325 MG Tab PO ONE (02:05)
[2020-07-31] MEDS ORDERED: Ondansetron 4 MG Tab.DIS PO ONE (02:17)
[2020-07-31 09:04] VITALS: BP 125/80; PULSE 67
== END 2020-07-31 09:18 ==
LOC: MW.ED 21:10
DX: R45.851 Suicidal ideations (principal); Z20.822 Contact with and (suspected) exposure to COVID-19
CPT/HCPCS: 36415; 80053; 80143; 80179; 80305; 80307; 81001; 81025; 83735; 84443; 85025; 87635; 93005; 99285; A9270; 93010; U0002

== ENCOUNTER 2020-08-17 15:15 | Emergency (ER) | payer BC ==
[2020-08-17] MEDS ORDERED: Sodium Chloride 0.9% 1,000 ML IV ONE (17:21)
[2020-08-17] MEDS ORDERED: Ondansetron 4 MG/2 ML SDV IVPUSH ONE (17:22)
[2020-08-17] MEDS ORDERED: Morphine 2 MG/ML SYRINGE IVPUSH ONE (17:23)
--- NOTE | 2020-08-17 18:39 | CT ---
INDICATION: Left flank pain. COMPARISON: CT of the abdomen and pelvis without contrast from 11/22/2018 TECHNIQUE: CT examination of the abdomen and pelvis was performed without contrast enhancement using 2.5 mm thick axial sections from the lung bases through the pubic symphysis. Oral contrast was not administered. Please note that all CT scans at this facility use dose modulation, iterative reconstruction, and/or weight-based dosing when appropriate to reduce radiation dose to as low as reasonably achievable. FINDINGS: In the abdomen, the unenhanced liver, spleen, pancreas, and adrenals are normal in appearance. There is new mild nonobstructive left nephrolithiasis with a new 3 millimeter calculus in the interpolar left kidney and a 2 millimeter calculus located immediately superior to it. There is no sign of hydronephrosis or hydroureter. There is no sign of ureterolithiasis. The unenhanced kidneys are otherwise normal in appearance. The gallbladder is normal in appearance. The abdominal aorta is normal in caliber with no sign of dilatation. There is no sign of retroperitoneal mass or adenopathy. There is a stable moderate-sized hiatal hernia. The rest of the stomach, loops of small bowel, and colon in the abdomen are otherwise normal in appearance. Again seen is a small fat containing periumbilical hernia. In the pelvis, the appendix is normal in appearance with no sign of inflammatory process. The loops of small bowel and colon in the pelvis are normal in appearance. The uterus and adnexal regions are normal in appearance. The urinary bladder is normal in appearance. There is no sign of pelvic or inguinal mass or adenopathy. There is no sign of free air or free fluid in the abdomen or pelvis. There is stable appearance of a subpleural 3 millimeter nodule in the left lateral lower lobe on axial image 20 series 202. Since this has been stable for nearly 2 years, no further follow-up is indicated. The previously seen nodule located in the inferior anterior subpleural right middle lobe is not included on today`s study. The lung bases are otherwise clear. The osseous structures are normal in appearance for the patient`s age. IMPRESSION: No sign of left hydronephrosis, hydroureter, or ureterolithiasis to correlate with the patient`s left flank pain. CT of the abdomen shows new mild nonobstructive left nephrolithiasis with a 3 millimeter calculus and a 2 millimeter calculus located in the interpolar region. Stable moderate hiatal hernia. CT of the pelvis shows stable appearance of a small periumbilical hernia containing only fat. Stable small subpleural nodule in the left lateral lower lobe, requiring no further follow-up since it has been stable for nearly 2 years. Please note that all CT scans at this facility use dose modulation, iterative reconstruction, and/or weight-based dosing when appropriate to reduce radiation dose to as low as reasonably achievable. Dictated by Brandon Cobb MD @ 08/17/2020 6:37:[address] Brandon Cobb @ Aug 17 2020 6:37PM
[2020-08-17 18:43] LABS: BLOOD UREA NITROGEN,BUN 8 mg/dL (7.0-18.0); CARBON DIOXIDE,CO2 23.2 mmol/L (21.0-32.0); CHLORIDE,CL 106 mmol/L (98-107); GLUCOSE RANDOM 83 mg/dL (74-106); LIPASE 100 U/L (73-393); POTASSIUM,K 3.6 mmol/L (3.5-5.1); SODIUM,NA 140 mmol/L (136-145)
[2020-08-17] MEDS ORDERED: Calcium Gluconate 10% 1 GM/10 ML SDV IVPUSH ONE (18:50)
[2020-08-17] MEDS ORDERED: Ketorolac 30 MG/ML SDV IVPUSH ONE (19:19)
--- NOTE | 2020-08-17 20:06 | EDM.PDOC ---
ED HPI GENERAL MEDICAL PROBLEM - General Chief Complaint: Genitourinary Problem Stated Complaint: KIDNEY PROBLEMS Time Seen by Provider: 08/17/20 17:00 Source of Information: Reports: Patient History Limitations: Reports: No Limitations - History of Present Illness INITIAL COMMENTS - FREE TEXT/NARRATIVE: HISTORY AND PHYSICAL: History of present illness: Patient is a 44-year-old female who presents to the emergency department secondary to sudden onset left flank pain which started this morning. Patient states that the pain is severe and stabbing and was sudden in onset and feels the same as past kidney stones. She says since then the pain has subsided a little bit pain comes in waves. Patient states with the pain she has also had some nausea and a few episodes of nonbloody diarrhea. Patient denies problems urinating but does state that she is peeing less frequently than she normally does. Patient reports a history of kidney stones and she said her last stone was about 10 years ago. Patient denies fever, chills, chest pain, shortness of breath, or cough. Denies headache, neck stiff ness, change in vision, syncope, or near syncope. Denies, vomiting, constipation, or dysuria. Has not noted any blood in urine or stool. Patient has been eating and drinking appropriately. Review of systems: As per history of present illness and below otherwise all systems reviewed and negative. Past medical history: As per history of present illness and as reviewed below otherwise noncontributory. Surgical history: As per history of present illness and as reviewed below otherwise noncontributory. Social history: See social history for further information Family history: As per history of present illness and as reviewed below otherwise noncontributory. Physical exam: General: Patient is alert, oriented, and in no acute distress. Patient sitting comfortably on exam table. Patient's vitals stable and reviewed by me. HEENT: Atraumatic, normocephalic, pupils equal and reactive bilaterally, negative for conjunctival pallor or scleral icterus, mucous membranes moist, TMs normal bilaterally, throat clear, neck supple, nontender, trachea midline. No drooling or trismus noted. No meningeal signs. No hot potato voice noted. Lungs: Clear to auscultation, breath sounds equal bilaterally, chest nontender. Heart: S1S2, regular rate and rhythm without overt murmur Abdomen: Soft, nondistended, nontender. Negative for masses or hepatosplenomegaly. Positive for costovertebral tenderness on the left side. Pelvis: Stable nontender. Genitourinary: Deferred. Rectal: Deferred. Skin: Intact, warm, dry. No lesions or rashes noted. Extremities: Atraumatic, negative for cords or calf pain. Neurovascular unremarkable. Neuro: Awake, alert, oriented. Cranial nerves II through XII unremarkable. Cerebellum unremarkable. Motor and sensory unremarkable throughout. Exam nonfocal. Notes: Patient is a 44-year-old meat female who presents emergency room today secondary to left-sided flank pain that started this morning. Upon arrival to the ED, patient is vitally stable and well-appearing on exam. However, she is positive for CVA tenderness on the left side. Will perform basic lab work as well as abdominal pelvic CT scan. CBC is unremarkable. Chemistry does show a corrected calcium 7.8 which is mildly low. We will replete calcium today in the emergency room. Alk phos elevated at 207 which is nonspecific, otherwise CMP otherwise unremarkable. hCG is negative. Urinalysis indicates small leukocyte Estrace with 2-5 white blood cells, otherwise unremarkable. Impression, early urinary tract infection. Abdominal pelvic CT shows no sign of left hydronephrosis, hydroureter, or ureterolithiasis to correlate with patient's left flank pain. There is a new nonobstructive left nephrolithiasis with a 3 mm calculus and a 2 mm calculus located in the interpolar region. Stable moderate hiatal hernia. CT of the pelvis shows stable appearance of a small periumbilical hernia containing only fat. Stable small subpleural nodule in the left lateral lower lobe requiring no further follow-up since it has been stable for 2 years. All incidental findings of imaging today discussed with patient and importance to have this followed up with her primary care provider. Upon reevaluation of patient, she is more comfortable following therapeutics today in the ED and remains vitally stable and well-appearing on exam. Given patient is well appearing on exam, afebrile, normal WBC, vitally stable, and UA indicative of early/mild UTI, do not suspect acute pyelonephritis at this time. However, will give Keflex for early urinary tract infection. Strict return precautions thoroughly discussed with patient. Signs and symptoms that were prompt return to the ED thoroughly discussed with patient. Discussed importance for follow-up with a primary care provider. Voices understanding and is agreeable to plan of care. Denies any further questions or concerns at this time. Diagnostics: UA, noncontrast abd/pelvic CT, CBC, CMP, Urine culture, serum hcg, lipase Therapeutics: Morphine, Toradol, calcium Prescription: Cephalexin Impression: Left flank pain Hypocalcemia Urinary tract infection, early Plan: 1. Take medication as prescribed. You can alternate ibuprofen and Tylenol as directed for pain and discomfort. 2. Follow-up with a primary care provider as discussed. Return to the ED as needed and as discussed. Definitive disposition and diagnosis as appropriate pending reevaluation and review of above. right kidney Pain Score (Numeric/FACES): 10 - Related Data Allergies Allergy/AdvReac Type Severity Reaction Status Date / Time No Known Allergies Allergy Verified 08/17/20 16:33 Home Meds: Home Meds Albuterol Sulfate [Proair Hfa] 1 puff INH Q4H PRN 07/30/20 [History] FLUoxetine HCl [Fluoxetine HCl] 40 mg PO QPM 07/30/20 [History] Prazosin HCl [Prazosin] 2 mg PO BEDTIME 07/30/20 [History] hydrOXYzine HCL [Hydroxyzine HCl] 25 mg PO QID PRN 07/30/20 [History] risperiDONE [Risperidone] 3 mg PO DAILY 07/30/20 [History] Past Medical History - Past Health History Medical/Surgical History: Denies Medical/Surgical History HEENT History: Reports: None Cardiovascular History: Reports: None Respiratory History: Reports: Asthma Gastrointestinal History: Reports: None Genitourinary History: Reports: Renal Calculus 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 Musculoskeletal History: Reports: None Neurological History: Reports: None Psychiatric History: Reports: None Endocrine/Metabolic History: Reports: None Hematologic History: Reports: None Immunologic History: Reports: None Oncologic (Cancer) History: Reports: None Dermatologic History: Reports: Eczema - Infectious Disease History Infectious Disease History: Reports: Chicken Pox - Past Surgical History Head Surgeries/Procedures: Reports: None HEENT Surgical History: Reports: None Cardiovascular Surgical History: Reports: None Respiratory Surgical History: Reports: None GI Surgical History: Reports: None Female Surgical History: Reports: Ureteral Stent Endocrine Surgical History: Reports: None Neurological Surgical History: Reports: None Musculoskeletal Surgical History: Reports: Other (See Below) Other Musculoskeletal Surgeries/Procedures:: foot surgery Oncologic Surgical History: Reports: None Dermatological Surgical History: Reports: None Social & Family History - Family History Family Medical History: No Pertinent Family History - Caffeine Use Caffeine Use: Reports: None ED ROS GENERAL - Review of Systems Review Of Systems: Comprehensive ROS is negative, except as noted in HPI. ED EXAM, GENERAL - Physical Exam Exam: See Below (see dictation) Course - Vital Signs Last Recorded V/S: Last Vital Signs Temp 95.7 F L 08/17/20 16:10 Pulse 96 08/17/20 16:10 Resp 18 08/17/20 16:10 BP 134/88 08/17/20 16:10 Pulse Ox 98 08/17/20 16:10 - Orders/Labs/Meds Orders: Active Orders 24 hr Category Date Time Status CULTURE URINE [MREF] Stat Lab 08/17/20 15:50 Received Labs: Laboratory Tests 08/17/20 08/17/20 08/17/20 Range/Units 15:50 16:16 16:45 WBC 8.24 (4.0-11.0) K/uL RBC 4.55 (4.30-5.90) M/uL Hgb 13.2 (12.0-16.0) g/dL Hct 40.2 (36.0-46.0) % MCV 88.4 (80.0-98.0) fL MCH 29.0 (27.0-32.0) pg MCHC 32.8 (31.0-37.0) g/dL RDW Std Deviation 45.0 (28.0-62.0) fl RDW Coeff of Collins 14 (11.0-15.0) % Plt Count 264 (150-400) K/uL MPV 12.10 H (7.40-12.00) fL Neut % (Auto) 61.1 (48.0-80.0) % Lymph % (Auto) 26.8 (16.0-40.0) % Day % (Auto) 7.4 (0.0-15.0) % Eos % (Auto) 4.6 (0.0-7.0) % Baso % (Auto) 0.1 (0.0-1.5) % Neut # (Auto) 5.0 (1.4-5.7) K/uL Lymph # (Auto) 2.2 (0.6-2.4) K/uL Day # (Auto) 0.6 (0.0-0.8) K/uL Eos # (Auto) 0.4 (0.0-0.7) K/uL Baso # (Auto) 0.0 (0.0-0.1) K/uL Nucleated RBC % 0.0 /100WBC Nucleated RBCs # 0 K/uL Sodium (136-145) mmol/L Potassium (3.5-5.1) mmol/L Chloride (98-107) mmol/L Carbon Dioxide (21.0-32.0) mmol/L BUN (7.0-18.0) mg/dL Creatinine (0.6-1.0) mg/dL Est Cr Clr Drug Dosing mL/min Estimated GFR (MDRD) ml/min Glucose (74-106) mg/dL Calcium (8.5-10.1) mg/dL Total Bilirubin (0.2-1.0) mg/dL AST (15-37) IU/L ALT (14-63) IU/L Alkaline Phosphatase (46-116) U/L Total Protein (6.4-8.2) g/dL Albumin (3.4-5.0) g/dL Globulin (2.6-4.0) g/dL Albumin/Globulin Ratio (0.9-1.6) Lipase (73-393) U/L HCG, Qual (NEG) Urine Color YELLOW Urine Appearance SLT CLOUDY Urine pH 5.5 (5.0-8.0) Ur Specific [place] <= 1.005 (1.001-1.035) Urine Protein NEGATIVE (NEGATIVE) mg/dL Urine Glucose (UA) NEGATIVE (NEGATIVE) mg/dL Urine Ketones NEGATIVE (NEGATIVE) mg/dL Urine Occult Blood NEGATIVE (NEGATIVE) Urine Nitrite NEGATIVE (NEGATIVE) Urine Bilirubin NEGATIVE (NEGATIVE) Urine Urobilinogen 0.2 (<2.0) EU/dL Ur Leukocyte Esterase SMALL H (NEGATIVE) Urine RBC 0-2 (0-2/HPF) Urine WBC 2-5 (0-5/HPF) Ur Epithelial Cells FEW (NONE-FEW) Urine Bacteria FEW (NEGATIVE) Urine HCG, Qual NEGATIVE (NEGATIVE) 08/17/20 08/17/20 Range/Units 16:45 16:45 WBC (4.0-11.0) K/uL RBC (4.30-5.90) M/uL Hgb (12.0-16.0) g/dL Hct (36.0-46.0) % MCV (80.0-98.0) fL MCH (27.0-32.0) pg MCHC (31.0-37.0) g/dL RDW Std Deviation (28.0-62.0) fl RDW Coeff of Collins (11.0-15.0) % Plt Count (150-400) K/uL MPV (7.40-12.00) fL Neut % (Auto) (48.0-80.0) % Lymph % (Auto) (16.0-40.0) % Day % (Auto) (0.0-15.0) % Eos % (Auto) (0.0-7.0) % Baso % (Auto) (0.0-1.5) % Neut # (Auto) (1.4-5.7) K/uL Lymph # (Auto) (0.6-2.4) K/uL Day # (Auto) (0.0-0.8) K/uL Eos # (Auto) (0.0-0.7) K/uL Baso # (Auto) (0.0-0.1) K/uL Nucleated RBC % /100WBC Nucleated RBCs # K/uL Sodium 140 (136-145) mmol/L Potassium 3.6 (3.5-5.1) mmol/L Chloride 106 (98-107) mmol/L Carbon Dioxide 23.2 (21.0-32.0) mmol/L BUN 8 (7.0-18.0) mg/dL Creatinine 0.8 (0.6-1.0) mg/dL Est Cr Clr Drug Dosing 76.68 mL/min Estimated GFR (MDRD) > 60.0 ml/min Glucose 83 (74-106) mg/dL Calcium 7.6 L (8.5-10.1) mg/dL Total Bilirubin 0.5 (0.2-1.0) mg/dL AST 24 (15-37) IU/L ALT 34 (14-63) IU/L Alkaline Phosphatase 207 H (46-116) U/L Total Protein 7.2 (6.4-8.2) g/dL Albumin 3.1 L (3.4-5.0) g/dL Globulin 4.1 H (2.6-4.0) g/dL Albumin/Globulin Ratio 0.8 L (0.9-1.6) Lipase 100 (73-393) U/L HCG, Qual NEGATIVE (NEG) Urine Color Urine Appearance Urine pH (5.0-8.0) Ur Specific [place] (1.001-1.035) Urine Protein (NEGATIVE) mg/dL Urine Glucose (UA) (NEGATIVE) mg/dL Urine Ketones (NEGATIVE) mg/dL Urine Occult Blood (NEGATIVE) Urine Nitrite (NEGATIVE) Urine Bilirubin (NEGATIVE) Urine Urobilinogen (<2.0) EU/dL Ur Leukocyte Esterase (NEGATIVE) Urine RBC (0-2/HPF) Urine WBC (0-5/HPF) Ur Epithelial Cells (NONE-FEW) Urine Bacteria (NEGATIVE) Urine HCG, Qual (NEGATIVE) Meds: Medications Discontinued Medications Generic Name Dose Route Start Last Admin Trade Name April PRN Reason Stop Dose Admin Calcium Gluconate 1 gm 08/17/20 18:50 08/17/20 19:32 Calcium Gluconate 10% 1 Gm/10 Ml Sdv IVPUSH 08/17/20 18:51 1 gm ONETIME ONE Administration Sodium Chloride 1,000 mls @ 999 mls/hr 08/17/20 17:21 08/17/20 17:37 Normal Saline IV 08/17/20 18:21 999 mls/hr BOLUS ONE Administration Ketorolac Tromethamine 30 mg 08/17/20 19:19 08/17/20 19:32 Ketorolac 30 Mg/Ml Sdv IVPUSH 08/17/20 19:20 30 mg ONETIME ONE Administration Morphine Sulfate 2 mg 08/17/20 17:23 08/17/20 17:37 Morphine 2 Mg/Ml Syringe IVPUSH 08/17/20 17:24 2 mg ONETIME ONE Administration Ondansetron HCl 4 mg 08/17/20 17:22 08/17/20 17:37 Ondansetron 4 Mg/2 Ml Sdv IVPUSH 08/17/20 17:23 4 mg ONETIME ONE Administration Departure - Departure Time of Disposition: 19:35 Disposition: Home, Self-Care 01 Clinical Impression: Hypocalcemia, Left flank pain Urinary tract infection Qualifiers: Urinary tract infection type: site unspecified Hematuria presence: without hematuria Qualified Code(s): N39.0 - Urinary tract infection, site not specified - Discharge Information Referrals: Oscar Ferrara MD [Primary Care Provider] - Additional Instructions: The following information is given to patients seen in the emergency department who are being discharged to home. This information is to outline your options for follow-up care. We provide all patients seen in our emergency department with a follow-up referral. The need for follow-up, as well as the timing and circumstances, are variable depending upon the specifics of your emergency department visit. If you don't have a primary care physician on staff, we will provide you with a referral. We always advise you to contact your personal physician following an emergency department visit to inform them of the circumstance of the visit and for follow-up with them and/or the need for any referrals to a consulting specialist. The emergency department will also refer you to a specialist when appropriate. This referral assures that you have the opportunity for follow-up care with a specialist. All of these measure are taken in an effort to provide you with optimal care, which includes your follow-up. Under all circumstances we always encourage you to contact your private physician who remains a resource for coordinating your care. When calling for follow-up care, please make the office aware that this follow-up is from your recent emergency room visit. If for any reason you are refused follow-up, please contact the [facility] Emergency Department at and asked to speak to the emergency department charge nurse. [facility] Primary [facility] [address] [place] [id number] [address] [id number] 1. Take medication as prescribed. You can alternate ibuprofen and Tylenol as directed for pain and discomfort. 2. Follow-up with a primary care provider as discussed. Return to the ED as needed and as discussed. Sepsis Event Note (ED) - Evaluation Sepsis Screening Result: No Definite Risk - Focused Exam Vital Signs: Vital Signs Temp Pulse Resp BP Pulse Ox 08/17/20 16:10 95.7 F L 96 18 134/88 98
[2020-08-17] MEDS ORDERED: Acetaminophen 325 MG Tab PO ONE (20:36)
[2020-08-17 20:58] VITALS: BP 129/58; PULSE 86
== END 2020-08-17 20:58 | disposition home or self-care (01) ==
LOC: MW.ED 15:15
DX: N39.0 Urinary tract infection, site not specified (principal); E83.51 Hypocalcemia
CPT/HCPCS: 74176; 80053; 81001; 81025; 83690; 84703; 85025; 87086; 96374; 96375; 99284; A9270; J0610; J1885; J2270; J2405; J7030

== ENCOUNTER 2020-10-15 18:46 | Emergency (ER) | payer BC ==
--- NOTE | 2020-10-15 19:20 | EDM.PDOC ---
ED HPI GENERAL MEDICAL PROBLEM - General Chief Complaint: Behavioral/Psych Stated Complaint: SUICIDAL THOUGHTS Time Seen by Provider: 10/15/20 19:02 Source of Information: Reports: Patient History Limitations: Reports: No Limitations - History of Present Illness INITIAL COMMENTS - FREE TEXT/NARRATIVE: HISTORY AND PHYSICAL: History of present illness: Patient is a 45-year-old female who presents emergency room today with concern of suicidal ideation with a plan that started this morning. Patient states that she had tried to slit her throat but her son had stopped her and told her she had to come the emergency room. Patient states she has a history of bipolar disorder and stopped taking her medications Risperidone and fluoxetine a few days ago because she "wants to be normal ". Patient states that she hears the devil saying that she needs to end her life and has been hearing this all day today. Patient states that she has made multiple suicide attempts in the past including hanging a few months ago. Patient states that she has been to [facility] for this before. Patient denies fever, chills, chest pain, shortness of breath, or cough. Denies headache, neck stiff ness, change in vision, syncope, or near syncope. Denies nausea, vomiting, abdominal pain, diarrhea, constipation, or dysuria. Has not noted any blood in urine or stool. Patient has been eating and drinking appropriately. Review of systems: As per history of present illness and below otherwise all systems reviewed and negative. Past medical history: As per history of present illness and as reviewed below otherwise noncontributory. Surgical history: As per history of present illness and as reviewed below otherwise noncontributory. Social history: See social history for further information Family history: As per history of present illness and as reviewed below otherwise noncontributory. Physical exam: General: Patient is alert, oriented, and in no acute distress. Patient sitting comfortably on exam table. Vitals stable and reviewed by me. HEENT: Atraumatic, normocephalic, pupils equal and reactive bilaterally, negative for conjunctival pallor or scleral icterus, mucous membranes moist, TMs normal bilaterally, throat clear, neck supple, nontender, trachea midline. No drooling or trismus noted. No meningeal signs. No hot potato voice noted. Lungs: Clear to auscultation, breath sounds equal bilaterally, chest nontender. Heart: S1S2, regular rate and rhythm without overt murmur Abdomen: Soft, nondistended, nontender. Negative for masses or hepatospleno megaly. Negative for costovertebral tenderness. Pelvis: Stable nontender. Genitourinary: Deferred. Rectal: Deferred. Skin: Intact, warm, dry. No lesions or rashes noted. Extremities: Atraumatic, negative for cords or calf pain. Neurovascular unremarkable. Neuro: Awake, alert, oriented. Cranial nerves II through XII unremarkable. Cerebellum unremarkable. Motor and sensory unremarkable throughout. Exam nonfocal. Notes: Patient is a 45-year-old female who presents emergency room today with concern of suicidal elation with the plan with a history of bipolar disorder noncompliant with medications over the past several days. Upon arrival to the ED, patient is vitally stable and well-appearing on exam. Upon my evaluation, patient requires inpatient psychiatric evaluation and an involuntary hold work paperwork filled out and suicidal precautions initiated upon arrival to the ED. Will obtain medical screening for transfer to inpatient psychiatric unit. Mild derangements of labwork today is unremarkable. I did call and speak to the psychiatry on-call for [facility], Dr. Aponte, and thoroughly discussed patient's case. Accepting of transfer. EMS arranged. Diagnostics: EKG, CBC, CMP, UA, UDS, salicylate, magnesium, acetaminophen, urine hCG, ethanol Therapeutics: None Impression: Suicidal ideation with a plan Plan: As per to Dr. Aponte at [facility] in [place] via EMS. Definitive disposition and diagnosis as appropriate pending reevaluation and review of above. - Related Data Allergies Allergy/AdvReac Type Severity Reaction Status Date / Time No Known Allergies Allergy Verified 10/15/20 18:51 Home Meds: Home Meds Albuterol Sulfate [Proair Hfa] 1 puff INH Q4H PRN 07/30/20 [History] FLUoxetine HCl [Fluoxetine HCl] 40 mg PO QPM 07/30/20 [History] Prazosin HCl [Prazosin] 2 mg PO BEDTIME 07/30/20 [History] hydrOXYzine HCL [Hydroxyzine HCl] 25 mg PO QID PRN 07/30/20 [History] risperiDONE [Risperidone] 3 mg PO DAILY 07/30/20 [History] Past Medical History - Past Health History Medical/Surgical History: Denies Medical/Surgical History HEENT History: Reports: None Cardiovascular History: Reports: None Respiratory History: Reports: Asthma Gastrointestinal History: Reports: None Genitourinary History: Reports: Renal Calculus [employer]OPER History: Reports: None Musculoskeletal History: Reports: None Neurological History: Reports: None Psychiatric History: Reports: None Endocrine/Metabolic History: Reports: None Hematologic History: Reports: None Immunologic History: Reports: None Oncologic (Cancer) History: Reports: None Dermatologic History: Reports: Eczema - Infectious Disease History Infectious Disease History: Reports: Chicken Pox - Past Surgical History Head Surgeries/Procedures: Reports: None HEENT Surgical History: Reports: None Cardiovascular Surgical History: Reports: None Respiratory Surgical History: Reports: None GI Surgical History: Reports: None Female Surgical History: Reports: Ureteral Stent Endocrine Surgical History: Reports: None Neurological Surgical History: Reports: None Musculoskeletal Surgical History: Reports: Other (See Below) Other Musculoskeletal Surgeries/Procedures:: foot surgery Oncologic Surgical History: Reports: None Dermatological Surgical History: Reports: None Social & Family History - Family History Family Medical History: No Pertinent Family History - Tobacco Use Tobacco Use Status *Q: Never Tobacco User - Caffeine Use Caffeine Use: Reports: None ED ROS GENERAL - Review of Systems Review Of Systems: Comprehensive ROS is negative, except as noted in HPI. ED EXAM, GENERAL - Physical Exam Exam: See Below (see dictation) Course - Vital Signs Last Recorded V/S: Last Vital Signs Temp 98 F 10/15/20 18:53 Pulse 75 10/15/20 23:23 Resp 16 10/15/20 18:53 BP 129/87 10/15/20 23:23 Pulse Ox 97 10/15/20 23:23 - Orders/Labs/Meds Labs: Laboratory Tests 10/15/20 10/15/20 10/15/20 Range/Units 19:13 19:13 19:13 WBC (4.0-11.0) K/uL RBC (4.30-5.90) M/uL Hgb (12.0-16.0) g/dL Hct (36.0-46.0) % MCV (80.0-98.0) fL MCH (27.0-32.0) pg MCHC (31.0-37.0) g/dL RDW Std Deviation (28.0-62.0) fl RDW Coeff of Collins (11.0-15.0) % Plt Count (150-400) K/uL MPV (7.40-12.00) fL Neut % (Auto) (48.0-80.0) % Lymph % (Auto) (16.0-40.0) % [place] % (Auto) (0.0-15.0) % Eos % (Auto) (0.0-7.0) % Baso % (Auto) (0.0-1.5) % Neut # (Auto) (1.4-5.7) K/uL Lymph # (Auto) (0.6-2.4) K/uL [place] # (Auto) (0.0-0.8) K/uL Eos # (Auto) (0.0-0.7) K/uL Baso # (Auto) (0.0-0.1) K/uL Nucleated RBC % /100WBC Nucleated RBCs # K/uL Sodium (136-145) mmol/L Potassium (3.5-5.1) mmol/L Chloride (98-107) mmol/L Carbon Dioxide (21.0-32.0) mmol/L BUN (7.0-18.0) mg/dL Creatinine (0.6-1.0) mg/dL Est Cr Clr Drug Dosing mL/min Estimated GFR (MDRD) ml/min Glucose (74-106) mg/dL Calcium (8.5-10.1) mg/dL Magnesium (1.8-2.4) mg/dL Total Bilirubin (0.2-1.0) mg/dL AST (15-37) IU/L ALT (14-63) IU/L Alkaline Phosphatase (46-116) U/L Total Protein (6.4-8.2) g/dL Albumin (3.4-5.0) g/dL Globulin (2.6-4.0) g/dL Albumin/Globulin Ratio (0.9-1.6) Urine Color YELLOW Urine Appearance CLEAR Urine pH 7.0 (5.0-8.0) Ur Specific [place] <= 1.005 (1.001-1.035) Urine Protein NEGATIVE (NEGATIVE) mg/dL Urine Glucose (UA) NEGATIVE (NEGATIVE) mg/dL Urine Ketones NEGATIVE (NEGATIVE) mg/dL Urine Occult Blood NEGATIVE (NEGATIVE) Urine Nitrite NEGATIVE (NEGATIVE) Urine Bilirubin NEGATIVE (NEGATIVE) Urine Urobilinogen 0.2 (<2.0) EU/dL Ur Leukocyte Esterase NEGATIVE (NEGATIVE) Urine RBC 0-1 (0-2/HPF) Urine WBC 0-1 (0-5/HPF) Ur Epithelial Cells FEW (NONE-FEW) Urine Bacteria RARE (NEGATIVE) Urine HCG, Qual NEGATIVE (NEGATIVE) Salicylates (0-20) mg/dL Urine Opiates Screen NEGATIVE (NEGATIVE) Ur Oxycodone Screen NEGATIVE (NEGATIVE) Urine Methadone Screen NEGATIVE (NEGATIVE) Acetaminophen ug/mL Ur Barbiturates Screen NEGATIVE (NEGATIVE) Ur Phencyclidine Scrn NEGATIVE (NEGATIVE) Ur Amphetamine Screen NEGATIVE (NEGATIVE) U Methamphetamines Scrn NEGATIVE (NEGATIVE) U Benzodiazepines Scrn NEGATIVE (NEGATIVE) U Cocaine Metab Screen NEGATIVE (NEGATIVE) U Marijuana (THC) Screen NEGATIVE (NEGATIVE) Ethyl Alcohol mg/dL 10/15/20 10/15/20 Range/Units 20:12 20:12 WBC 8.56 (4.0-11.0) K/uL RBC 5.12 (4.30-5.90) M/uL Hgb 14.7 (12.0-16.0) g/dL Hct 43.3 (36.0-46.0) % MCV 84.6 (80.0-98.0) fL MCH 28.7 (27.0-32.0) pg MCHC 33.9 (31.0-37.0) g/dL RDW Std Deviation 42.8 (28.0-62.0) fl RDW Coeff of Collins 14 (11.0-15.0) % Plt Count 249 (150-400) K/uL MPV 11.90 (7.40-12.00) fL Neut % (Auto) 62.2 (48.0-80.0) % Lymph % (Auto) 28.5 (16.0-40.0) % [place] % (Auto) 6.4 (0.0-15.0) % Eos % (Auto) 2.8 (0.0-7.0) % Baso % (Auto) 0.1 (0.0-1.5) % Neut # (Auto) 5.3 (1.4-5.7) K/uL Lymph # (Auto) 2.4 (0.6-2.4) K/uL [place] # (Auto) 0.6 (0.0-0.8) K/uL Eos # (Auto) 0.2 (0.0-0.7) K/uL Baso # (Auto) 0.0 (0.0-0.1) K/uL Nucleated RBC % 0.0 /100WBC Nucleated RBCs # 0 K/uL Sodium 142 (136-145) mmol/L Potassium 3.9 (3.5-5.1) mmol/L Chloride 106 (98-107) mmol/L Carbon Dioxide 27.9 (21.0-32.0) mmol/L BUN 9 (7.0-18.0) mg/dL Creatinine 0.9 (0.6-1.0) mg/dL Est Cr Clr Drug Dosing 67.45 mL/min Estimated GFR (MDRD) > 60.0 ml/min Glucose 91 (74-106) mg/dL Calcium 8.8 (8.5-10.1) mg/dL Magnesium 2.3 (1.8-2.4) mg/dL Total Bilirubin 0.5 (0.2-1.0) mg/dL AST 17 (15-37) IU/L ALT 23 (14-63) IU/L Alkaline Phosphatase 212 H (46-116) U/L Total Protein 7.8 (6.4-8.2) g/dL Albumin 3.7 (3.4-5.0) g/dL Globulin 4.1 H (2.6-4.0) g/dL Albumin/Globulin Ratio 0.9 (0.9-1.6) Urine Color Urine Appearance Urine pH (5.0-8.0) Ur Specific [place] (1.001-1.035) Urine Protein (NEGATIVE) mg/dL Urine Glucose (UA) (NEGATIVE) mg/dL Urine Ketones (NEGATIVE) mg/dL Urine Occult Blood (NEGATIVE) Urine Nitrite (NEGATIVE) Urine Bilirubin (NEGATIVE) Urine Urobilinogen (<2.0) EU/dL Ur Leukocyte Esterase (NEGATIVE) Urine RBC (0-2/HPF) Urine WBC (0-5/HPF) Ur Epithelial Cells (NONE-FEW) Urine Bacteria (NEGATIVE) Urine HCG, Qual (NEGATIVE) Salicylates 0.4 (0-20) mg/dL Urine Opiates Screen (NEGATIVE) Ur Oxycodone Screen (NEGATIVE) Urine Methadone Screen (NEGATIVE) Acetaminophen <2.0 ug/mL Ur Barbiturates Screen (NEGATIVE) Ur Phencyclidine Scrn (NEGATIVE) Ur Amphetamine Screen (NEGATIVE) U Methamphetamines Scrn (NEGATIVE) U Benzodiazepines Scrn (NEGATIVE) U Cocaine Metab Screen (NEGATIVE) U Marijuana (THC) Screen (NEGATIVE) Ethyl Alcohol 3 mg/dL Departure - Departure Time of Disposition: 14:43 Disposition: DC/Tfer to Psych Hosp/Unit 65 Clinical Impression: Suicidal ideation - Discharge Information Referrals: PCP,None [Ordering Only Provider] - Forms: ED Department Discharge Sepsis Event Note (ED) - Evaluation Sepsis Screening Result: No Definite Risk
[2020-10-15 20:36] LABS: ACETAMINOPHEN <2.0 ug/mL; BLOOD UREA NITROGEN,BUN 9 mg/dL (7.0-18.0); CARBON DIOXIDE,CO2 27.9 mmol/L (21.0-32.0); CHLORIDE,CL 106 mmol/L (98-107); GLUCOSE RANDOM 91 mg/dL (74-106); POTASSIUM,K 3.9 mmol/L (3.5-5.1); SODIUM,NA 142 mmol/L (136-145)
--- NOTE | 2020-10-15 21:10 | PCM.EKG ---
#1 Interpretation EKG Date: 10/15/20 Time: 20:03 Rhythm: NSR Rate (Beats/Min): 73 [place]: LAD-Left [place] Deviation P-Wave: Present QRS: Normal ST-T: Normal (T wave inversion III, aVF) QT: Normal Comparison: No Change (07/30/20) EKG Interpretation Comments: Sinus Rhythm
[2020-10-15 23:27] VITALS: BP 129/87; PULSE 75
== END 2020-10-15 23:40 ==
LOC: MW.ED 18:46
DX: R45.851 Suicidal ideations (principal); J45.909 Unspecified asthma, uncomplicated; Z79.899 Other long term (current) drug therapy
CPT/HCPCS: 36415; 80053; 80143; 80179; 80305-QW; 80307; 81001; 81025; 83735; 85025; 93005; 93010; 99284; 99285-25

== ENCOUNTER 2021-04-29 16:05 | Emergency (ER) | payer SELFPAY ==
[2021-04-29 17:30] LABS: CORONAVIRUS COVID-19 NAA POSITIVE (NEGATIVE); INFLUENZA A NAA NEGATIVE (NEGATIVE); INFLUENZA B NAA NEGATIVE (NEGATIVE)
[2021-04-29] MEDS ORDERED: Albuterol 8 GM Inhaler INH STA (18:14)
[2021-04-29 19:13] VITALS: BP 137/83; PULSE 67
== END 2021-04-29 18:36 | disposition home or self-care (01) ==
LOC: MW.ED 16:05
DX: U07.1 COVID-19 (principal); J45.909 Unspecified asthma, uncomplicated; Z79.899 Other long term (current) drug therapy
CPT/HCPCS: 0240U; 99285; A9270

== ENCOUNTER 2021-10-20 18:28 | Emergency (ER) | payer SELFPAY ==
[2021-10-20] MEDS ORDERED: Acetaminophen/Codeine 120-12 MG/5 ML Soln 5 ML UD Cup PO ONE (20:46)
[2021-10-20 21:20] LABS: CORONAVIRUS COVID-19 NAA POSITIVE (NEGATIVE); INFLUENZA A NAA NEGATIVE (NEGATIVE); INFLUENZA B NAA NEGATIVE (NEGATIVE)
[2021-10-20 21:50] VITALS: BP 118/68; PULSE 89
== END 2021-10-20 21:44 | disposition home or self-care (01) ==
LOC: MW.ED 18:28
DX: U07.1 COVID-19 (principal)
CPT/HCPCS: 0240U; 87651; 99283; A9270

== ENCOUNTER 2022-07-12 01:29 | Emergency (ER) | payer SELFPAY ==
[2022-07-12] MEDS ORDERED: Albuterol/Ipratropium 3.0-0.5 MG/3 ML Neb Soln NEB ONE (01:37)
[2022-07-12] MEDS ORDERED: predniSONE 20 MG Tab PO ONE (01:38)
[2022-07-12] MEDS ORDERED: Albuterol/Ipratropium 3.0-0.5 MG/3 ML Neb Soln ONE (01:42)
[2022-07-12 02:43] VITALS: BP 129/69; PULSE 64
== END 2022-07-12 02:41 | disposition home or self-care (01) ==
LOC: MW.ED 01:29
DX: J45.909 Unspecified asthma, uncomplicated (principal)
CPT/HCPCS: 99284; A9270; J7620-GY

== ENCOUNTER 2022-11-09 17:42 | Emergency (ER) | payer SELFPAY ==
[2022-11-09] MEDS ORDERED: Dexamethasone 10 MG/ML SDV PO ONE (18:26)
[2022-11-09] MEDS ORDERED: Acetaminophen 325 MG Tab PO ONE (18:26)
[2022-11-09] MEDS ORDERED: Ibuprofen 400 MG Tab PO ONE (18:26)
[2022-11-09 19:14] LABS: CORONAVIRUS COVID-19 NAA NEGATIVE (NEGATIVE); INFLUENZA A NAA NEGATIVE (NEGATIVE); INFLUENZA B NAA NEGATIVE (NEGATIVE)
[2022-11-09 20:00] VITALS: BP 134/86; PULSE 68
== END 2022-11-09 20:00 | disposition home or self-care (01) ==
LOC: MW.ED 17:42
DX: B34.9 Viral infection, unspecified (principal); J45.909 Unspecified asthma, uncomplicated; Z20.822 Contact with and (suspected) exposure to COVID-19; Z79.51 Long term (current) use of inhaled steroids
CPT/HCPCS: 0240U; 71045; 99283; A9270; J8540

== ENCOUNTER 2023-05-22 11:44 | Emergency (ER) | payer SELFPAY ==
[2023-05-22 13:16] LABS: CORONAVIRUS COVID-19 NAA NEGATIVE (NEGATIVE); INFLUENZA A NAA NEGATIVE (NEGATIVE); INFLUENZA B NAA NEGATIVE (NEGATIVE)
[2023-05-22] MEDS: Acetaminophen 500 MG Tab PO ONE (13:21)
[2023-05-22] MEDS: Albuterol/Ipratropium 3.0-0.5 MG/3 ML Neb Soln NEB ONE (13:21)
[2023-05-22] MEDS: Ondansetron 4 MG Tab.DIS PO ONE (13:36)
[2023-05-22 14:36] VITALS: BP 138/98; PULSE 82
== END 2023-05-22 14:35 | disposition home or self-care (01) ==
LOC: MW.ED 11:44
DX: J45.901 Unspecified asthma with (acute) exacerbation (principal)
CPT/HCPCS: 0240U; 71045; 93005; 94640; 99285; A9270; 93010; 99283; J7620-GY

== ENCOUNTER 2023-07-04 14:22 | Emergency (ER) | payer SELFPAY ==
[2023-07-04] MEDS: Cephalexin 500 MG Cap PO ONE (14:42)
[2023-07-04] MEDS: Acetaminophen/HYDROcodone 325-5 MG Tab PO ONE (14:42)
[2023-07-04 15:06] VITALS: BP 160/97; PULSE 63
== END 2023-07-04 15:04 | disposition home or self-care (01) ==
LOC: MW.ED 14:22
DX: S80.861A Insect bite (nonvenomous), right lower leg, initial encounter (principal); L03.115 Cellulitis of right lower limb; J45.909 Unspecified asthma, uncomplicated; Z79.51 Long term (current) use of inhaled steroids; Z86.16 Personal history of COVID-19; Z79.899 Other long term (current) drug therapy; Z75.8 Other problems related to medical facilities and other health care; W57.XXXA Bitten or stung by nonvenomous insect and other nonvenomous arthropods, initial encounter
CPT/HCPCS: 93005; 99283; A9270; 93010

== ENCOUNTER 2023-09-24 10:20 | Emergency (ER) | payer OTHER ==
[2023-09-24] MEDS: Albuterol 0.083% 2.5 MG/3 ML Neb Soln NEB STA (11:20)
[2023-09-24 11:47] LABS: CORONAVIRUS COVID-19 NAA NEGATIVE (NEGATIVE); INFLUENZA A NAA NEGATIVE (NEGATIVE); INFLUENZA B NAA NEGATIVE (NEGATIVE); RESPIRATORY SYNCYTIAL VIR NAA NEGATIVE (NEGATIVE)
[2023-09-24] MEDS: Albuterol/Ipratropium 3.0-0.5 MG/3 ML Neb Soln NEB STA (11:48)
[2023-09-24] MEDS: Ketorolac 30 MG/ML SDV IM STA (11:48)
[2023-09-24] MEDS: Promethazine 25 MG/ML SDV IM STA (11:49)
[2023-09-24 13:03] VITALS: BP 123/78; PULSE 65
== END 2023-09-24 13:02 | disposition home or self-care (01) ==
LOC: MW.ED 10:20
DX: J06.9 Acute upper respiratory infection, unspecified (principal); B34.9 Viral infection, unspecified; J45.909 Unspecified asthma, uncomplicated; Z86.16 Personal history of COVID-19; Z79.899 Other long term (current) drug therapy; Z75.8 Other problems related to medical facilities and other health care
CPT/HCPCS: 0241U; 71046; 94640; 96372; 99285; J1885; J2550; J7620-GY

== ENCOUNTER 2023-12-03 11:36 | Emergency (ER) | payer OTHER ==
[2023-12-03] MEDS: Ibuprofen 400 MG Tab PO ONE (14:15)
[2023-12-03] MEDS: Acetaminophen 500 MG Tab PO ONE (14:15)
[2023-12-03] MEDS: Ondansetron 4 MG Tab.DIS PO ONE (14:15)
[2023-12-03 15:03] LABS: CORONAVIRUS COVID-19 NAA NEGATIVE (NEGATIVE); INFLUENZA A NAA NEGATIVE (NEGATIVE); INFLUENZA B NAA NEGATIVE (NEGATIVE); RESPIRATORY SYNCYTIAL VIR NAA NEGATIVE (NEGATIVE)
[2023-12-03 15:22] VITALS: BP 144/81; PULSE 66
== END 2023-12-03 15:24 | disposition home or self-care (01) ==
LOC: MW.ED 11:36
DX: B34.9 Viral infection, unspecified (principal); J45.909 Unspecified asthma, uncomplicated; Z86.16 Personal history of COVID-19; Z75.8 Other problems related to medical facilities and other health care; Z79.899 Other long term (current) drug therapy
CPT/HCPCS: 0241U; 99284; A9270; 99283

== ENCOUNTER 2024-01-20 08:21 | Emergency (ER) | payer OTHER ==
[2024-01-20] MEDS: Proparacaine 0.5% Ophth Soln 15 ML Bottle EYELF STA (08:59)
[2024-01-20 10:13] VITALS: BP 138/80; PULSE 61
== END 2024-01-20 10:13 | disposition home or self-care (01) ==
LOC: MW.ED 08:21
DX: H10.9 Unspecified conjunctivitis (principal); J45.909 Unspecified asthma, uncomplicated; Z79.51 Long term (current) use of inhaled steroids; Z96.0 Presence of urogenital implants
CPT/HCPCS: 99283; J3490

== ENCOUNTER 2024-04-17 05:30 | Emergency (ER) | payer OTHER ==
[2024-04-17 06:07] LABS: BASOPHILS ABSOLUTE AUTO 0.01 K/uL (0.00-0.20); BASOPHILS PERCENT AUTO 0.2 % (0.0-1.0); EOSINOPHILS ABSOLUTE AUTO 0.13 K/uL (0.00-0.45); HEMATOCRIT 44.6 % (37.0-47.0); HEMOGLOBIN 15.3 g/dL (12.0-16.0); IMMATURE GRAN ABSOLUTE AUTO 0.02 K/uL (0.00-0.05); IMMATURE GRAN PERCENT AUTO 0.3 % (0.0-0.4); LYMPHOCYTES ABSOLUTE AUTO 2.28 K/uL (1.00-4.80); LYMPHOCYTES PERCENT AUTO 34.6 % (24.0-44.0); MEAN CORPUSCULAR HEMOGLOBIN 29.4 pg (28.0-32.0); MEAN CORPUSCULAR HGB CONC 34.3 g/dL (32.0-36.0); MEAN CORPUSCULAR VOLUME 85.6 fL (83.0-99.0); MEAN PLATELET VOLUME 12.1 fL (9.4-12.3); MONOCYTES ABSOLUTE AUTO 0.43 K/uL (0.00-0.80); MONOCYTES PERCENT AUTO 6.5 % (0.0-8.0); NEUTROPHILS ABSOLUTE AUTO 3.72 K/uL (1.80-7.70); NEUTROPHILS PERCENT AUTO 56.4 % (41.0-71.0); PLATELET COUNT,PLT 165 K/uL (150-400); RED BLOOD CELL COUNT 5.21 M/uL (4.10-5.30); WHITE BLOOD CELL COUNT,WBC 6.59 K/uL (3.9-11.3)
[2024-04-17] MEDS: Ketorolac 30 MG/ML SDV IVPUSH ONE ×2 (06:08→07:48)
[2024-04-17 06:28] LABS: A/G RATIO 1.2 (0.9-1.6); ALANINE AMINOTRANSFERASE,ALT 26 IU/L (14-63); ALBUMIN 4.2 g/dL (3.4-5.0); ALKALINE PHOSPHATASE 202 U/L (46-116); ASPARTATE AMNIOTRANSFERASE,AST 31 IU/L (15-37); BILIRUBIN TOTAL 1.1 mg/dL (0.2-1.0); BLOOD UREA NITROGEN,BUN 13 mg/dL (7.0-18.0); CALCIUM 9.6 mg/dL (8.5-10.1); CARBON DIOXIDE,CO2 25.3 mmol/L (21.0-32.0); CHLORIDE,CL 110 mmol/L (98-107); CREATININE 0.8 mg/dL (0.6-1.0); GLUCOSE RANDOM 111 mg/dL (74-106); POTASSIUM,K 3.2 mmol/L (3.5-5.1); PROTEIN TOTAL,TP 7.7 g/dL (6.4-8.2); SODIUM,NA 145 mmol/L (136-145)
[2024-04-17 06:29] LABS: ESTIMATED GFR 90 mL/min (>60)
[2024-04-17] MEDS: Potassium Chloride 20 MEQ Tab.ER PO ONE (06:52)
[2024-04-17 06:59] LABS: APPEARANCE,URINE SLT CLOUDY; BILIRUBIN,URINE NEGATIVE (NEGATIVE); COLOR,URINE YELLOW; GLUCOSE,URINE NEGATIVE (NEGATIVE); KETONES,URINE TRACE mg/dL (NEGATIVE); LEUKOCYTE ESTERASE,URINE TRACE (NEGATIVE); NITRITE,URINE NEGATIVE (NEGATIVE); OCCULT BLOOD,URINE NEGATIVE (NEGATIVE); PROTEIN,URINE NEGATIVE (NEGATIVE); UROBILINOGEN,URINE 0.2 EU/dL (<2.0)
[2024-04-17 07:08] LABS: BACTERIA,URINE FEW (NEGATIVE); EPITHELIAL CELLS,URINE MODERATE (NONE-FEW); MUCUS,URINE LIGHT (NONE-MOD); RBC,URINE 0-2 (0-2/HPF)
[2024-04-17] MEDS: Morphine 4 MG/ML Syringe IVPUSH ONE (07:47)
[2024-04-17 09:50] VITALS: BP 133/79; PULSE 70
== END 2024-04-17 09:45 | disposition home or self-care (01) ==
LOC: MW.ED 05:30
DX: R10.9 Unspecified abdominal pain (principal); E87.6 Hypokalemia; J45.909 Unspecified asthma, uncomplicated; Z79.51 Long term (current) use of inhaled steroids; Z79.899 Other long term (current) drug therapy
CPT/HCPCS: 36415; 74176; 80053; 81001; 81025; 85025; 87086; 96374; 96375; 99284; A9270; J1885; J2270

== ENCOUNTER 2024-05-07 16:57 | Emergency (ER) | payer OTHER ==
[2024-05-07] MEDS ORDERED: Sodium Chloride 0.9% 10 ML Syringe FLUSH PRN (17:34)
[2024-05-07] MEDS ORDERED: Sodium Chloride 0.9% 2.5 ML Syringe FLUSH PRN (17:34)
[2024-05-07 17:55] LABS: BASOPHILS ABSOLUTE AUTO 0.03 K/uL (0.00-0.20); BASOPHILS PERCENT AUTO 0.5 % (0.0-1.0); EOSINOPHILS ABSOLUTE AUTO 0.14 K/uL (0.00-0.45); EOSINOPHILS PERCENT AUTO 2.4 % (0.0-6.0); HEMATOCRIT 40.5 % (37.0-47.0); IMMATURE GRAN ABSOLUTE AUTO 0.02 K/uL (0.00-0.05); IMMATURE GRAN PERCENT AUTO 0.3 % (0.0-0.4); LYMPHOCYTES ABSOLUTE AUTO 1.96 K/uL (1.00-4.80); MEAN CORPUSCULAR HEMOGLOBIN 29.5 pg (28.0-32.0); MEAN CORPUSCULAR HGB CONC 34.6 g/dL (32.0-36.0); MEAN CORPUSCULAR VOLUME 85.3 fL (83.0-99.0); MEAN PLATELET VOLUME 12.1 fL (9.4-12.3); MONOCYTES ABSOLUTE AUTO 0.41 K/uL (0.00-0.80); MONOCYTES PERCENT AUTO 6.9 % (0.0-8.0); NEUTROPHILS ABSOLUTE AUTO 3.38 K/uL (1.80-7.70); NEUTROPHILS PERCENT AUTO 56.9 % (41.0-71.0); PLATELET COUNT,PLT 185 K/uL (150-400); RED BLOOD CELL COUNT 4.75 M/uL (4.10-5.30); WHITE BLOOD CELL COUNT,WBC 5.94 K/uL (3.9-11.3)
[2024-05-07 18:15] LABS: APPEARANCE,URINE CLEAR; COLOR,URINE YELLOW; GLUCOSE,URINE NEGATIVE (NEGATIVE); KETONES,URINE NEGATIVE (NEGATIVE); PH,URINE 6.5 (5.0-8.0); PROTEIN,URINE NEGATIVE (NEGATIVE)
[2024-05-07 18:16] LABS: BACTERIA,URINE RARE (NEGATIVE); BILIRUBIN,URINE NEGATIVE (NEGATIVE); EPITHELIAL CELLS,URINE OCCASIONAL (NONE-FEW); LEUKOCYTE ESTERASE,URINE NEGATIVE (NEGATIVE); NITRITE,URINE NEGATIVE (NEGATIVE); OCCULT BLOOD,URINE NEGATIVE (NEGATIVE); RBC,URINE NONE SEEN (0-2/HPF); UROBILINOGEN,URINE 0.2 EU/dL (<2.0); WBC,URINE 0-1 (0-5/HPF)
[2024-05-07 18:20] LABS: A/G RATIO 1.3 (0.9-1.6); ALBUMIN 3.9 g/dL (3.4-5.0); BILIRUBIN TOTAL 0.9 mg/dL (0.2-1.0); CARBON DIOXIDE,CO2 24.2 mmol/L (21.0-32.0); CREATININE 0.7 mg/dL (0.6-1.0); EST CRCL DRUG DOSING (CG) 83.95 mL/min; POTASSIUM,K 3.1 mmol/L (3.5-5.1); PROTEIN TOTAL,TP 6.9 g/dL (6.4-8.2)
[2024-05-07] MEDS ORDERED: Naloxone 0.4 MG/ML SDV IVPUSH PRN (18:35)
[2024-05-07] MEDS: Morphine 2 MG/ML SYRINGE IVPUSH ONE ×2 (18:43→19:41)
[2024-05-07] MEDS: Potassium Chloride 10% 20 MEQ/15 ML Soln 15 ML UD Cup PO STA (19:41)
[2024-05-07 19:48] VITALS: BP 133/86; PULSE 68
== END 2024-05-07 20:13 | disposition home or self-care (01) ==
LOC: MW.ED 16:57
DX: S30.0XXA Contusion of lower back and pelvis, initial encounter (principal); Z75.8 Other problems related to medical facilities and other health care; X58.XXXA Exposure to other specified factors, initial encounter
CPT/HCPCS: 36415; 74176; 80053; 81001; 81025; 83690; 85025; 96374; 96376; 99284; A9270; J2270

== ENCOUNTER 2024-08-07 21:17 | Emergency (ER) | payer OTHER ==
[2024-08-08 02:00] VITALS: BP 140/80; PULSE 70
== END 2024-08-08 01:30 | disposition home or self-care (01) ==
LOC: MW.ED 21:17
DX: J06.9 Acute upper respiratory infection, unspecified (principal); J45.909 Unspecified asthma, uncomplicated; Z79.899 Other long term (current) drug therapy
CPT/HCPCS: 87426-QW; 99282; 99284

== ENCOUNTER 2024-11-07 13:10 | Emergency (ER) | payer SELFPAY ==
[2024-11-07] MEDS: Ketorolac 30 MG/ML SDV IVPUSH ONE (14:38)
[2024-11-07 14:45] LABS: BASOPHILS ABSOLUTE AUTO 0.04 K/uL (0.00-0.20); BASOPHILS PERCENT AUTO 0.6 % (0.0-1.0); EOSINOPHILS ABSOLUTE AUTO 0.38 K/uL (0.00-0.45); EOSINOPHILS PERCENT AUTO 5.2 % (0.0-6.0); IMMATURE GRAN ABSOLUTE AUTO 0.00 K/uL (0.00-0.05); IMMATURE GRAN PERCENT AUTO 0.0 % (0.0-0.4); LYMPHOCYTES ABSOLUTE AUTO 2.95 K/uL (1.00-4.80); LYMPHOCYTES PERCENT AUTO 40.6 % (24.0-44.0); MEAN PLATELET VOLUME 12.0 fL (9.4-12.3); MONOCYTES ABSOLUTE AUTO 0.39 K/uL (0.00-0.80); MONOCYTES PERCENT AUTO 5.4 % (0.0-8.0); NEUTROPHILS ABSOLUTE AUTO 3.50 K/uL (1.80-7.70); NEUTROPHILS PERCENT AUTO 48.2 % (41.0-71.0); NRBC ABSOLUTE 0.00 K/uL (0.00-0.02); NRBC PERCENT 0.0 /100WBC (0.0-0.2); PLATELET COUNT,PLT 232 K/uL (150-400); RED BLOOD CELL COUNT 5.11 M/uL (4.10-5.30); WHITE BLOOD CELL COUNT,WBC 7.26 K/uL (3.9-11.3)
[2024-11-07 15:06] LABS: APPEARANCE,URINE CLEAR; GLUCOSE,URINE NEGATIVE (NEGATIVE); OCCULT BLOOD,URINE NEGATIVE (NEGATIVE)
[2024-11-07] MEDS: Ondansetron 4 MG/2 ML SDV IVPUSH ONE (15:09)
[2024-11-07 15:16] LABS: A/G RATIO 1.1 (0.9-1.6); ALANINE AMINOTRANSFERASE,ALT 23 IU/L (14-63); ASPARTATE AMNIOTRANSFERASE,AST 20 IU/L (15-37); BILIRUBIN TOTAL 1.2 mg/dL (0.2-1.0); BLOOD UREA NITROGEN,BUN 12 mg/dL (7.0-18.0); CARBON DIOXIDE,CO2 26.5 mmol/L (21.0-32.0); CHLORIDE,CL 104 mmol/L (98-107); CREATININE 0.8 mg/dL (0.6-1.0); GLUCOSE RANDOM 99 mg/dL (74-106); POTASSIUM,K 3.8 mmol/L (3.5-5.1); PROTEIN TOTAL,TP 7.9 g/dL (6.4-8.2); SODIUM,NA 142 mmol/L (136-145)
[2024-11-07 15:18] LABS: ESTIMATED GFR 90 mL/min (>60)
[2024-11-07 16:02] VITALS: BP 137/79; PULSE 55
== END 2024-11-07 16:33 | disposition home or self-care (01) ==
LOC: MW.ED 13:10
DX: R10.9 Unspecified abdominal pain (principal); B02.9 Zoster without complications; J45.909 Unspecified asthma, uncomplicated; Z79.51 Long term (current) use of inhaled steroids; Z79.899 Other long term (current) drug therapy; Z75.3 Unavailability and inaccessibility of health-care facilities
CPT/HCPCS: 36415; 74176; 80053; 81003; 85025; 96361; 96374; 96375; 99284; J1885; J2270; J2405; J7030; 99283